=== PATIENT | female | born 1960 | race African-American/Black ===

== ENCOUNTER 2021-01-04 13:18 | Observation (INO) | payer OTHER, SELFPAY ==
[2021-01-04] VITALS (13 sets, daily range): BP systolic 138–160; BP diastolic 81–96; PULSE 21–62; RESP 12–57; TEMP 36.3–36.7; O2SAT 98–100; BMI 32.2
--- NOTE | ~2021-01-04 | XR_ITS ---
EXAMINATION: XR chest 2V DATE: 01/04/2021 15:50 INDICATION: Dizziness. TECHNIQUE: Frontal and lateral views of the chest were obtained. COMPARISON: None. FINDINGS: There is mild atelectasis in the lower lung zones. No pleural effusion or pneumothorax. Car diomegaly is noted. IMPRESSION: 1. Mild atelectasis in the lower lung zones. 2. Cardiomegaly. Reviewed, dictated and finalized at location A.
--- NOTE | ~2021-01-04 | US_ITS ---
EXAMINATION: US carotid duplex BI DATE: 01/05/2021 10:03 INDICATION: Dizziness TECHNIQUE: Grayscale, color Doppler, and pulsed Doppler images of the cervical carotid arteries were obtained. The degree of vessel stenosis is placed in one of the following categories: normal, <50%, 5 0-69%, >=70% but less than near-occlusion, near-occlusion, or total occlusion. Note that percent sten osis relative to normal distal artery lumen diameter is indirectly measured from velocity measurement s as described by Catalino, et al. Radiology 2003; 229:340-346. COMPARISON: None. FINDINGS: RIGHT: The right common carotid artery (CCA) peak systolic velocity (PSV) is 89 cm/s. The right internal car otid artery (ICA) PSV is 69 cm/s. The right ICA end-diastolic velocity (EDV) is 21 cm/s. The right IC A/CCA PSV ratio is 0.8. Grayscale and color Doppler images yield an estimate of <50% diameter reducti on from plaque in the ICA. The external carotid artery (ECA) PSV is 61 cm/s. There is antegrade flow in the right vertebral artery. LEFT: The left CCA PSV is 101 cm/s. The left ICA PSV is 82 cm/s. The left ICA EDV is 27 cm/s. The left ICA/ CCA PSV ratio is 0.8. Grayscale and color Doppler images yield an estimate of <50% diameter reduction from plaque in the ICA. The ECA PSV is 63 cm/s. There is antegrade flow in the left vertebral artery . IMPRESSION: 1. <50% stenosis in the right internal carotid artery. 2. <50% stenosis in the left internal carotid artery. Reviewed, dictated and finalized at location A.
--- NOTE | ~2021-01-04 | CT_ITS ---
EXAMINATION: CT brain wo con DATE: 01/04/2021 15:44 INDICATION: Dizziness. TECHNIQUE: Computed tomography (CT) of the head was performed without intravenous contrast. The mA wa s adjusted according to patient size. Iterative reconstruction technique was employed. The dose-lengt h product was 605.33 mGy-cm. COMPARISON: None FINDINGS: There are scattered areas of low attenuation in the cerebral white matter. There are old la cunar infarcts in the bilateral basal ganglia and right thalamus. There is an old infarct in left par ietal occipital region. There is no intracranial hemorrhage, acute infarction, or abnormal intracrani al mass lesion. There is ex vacuo dilatation of occipital horn of left lateral ventricle. The orbits are normal. There is mild mucosal thickening in the ethmoid sinuses. The mastoid air cells are normal . IMPRESSION: 1. Old infarcts in the left parietal-occipital region and bilateral basal ganglia. 2. Extensive nonspecific cerebral white matter disease, which likely represents chronic small vessel ischemic disease. Reviewed, dictated and finalized at location A. IMPRESSION: 1. Old infarcts in the left parietal-occipital region and bilateral basal gangl ia. 2. Extensive nonspecific cerebral white matter disease, which likely represents chronic small vessel ischemic disease.
--- NOTE | 2021-01-04 13:29 | ECG_ITS ---
Measurements Intervals Basom Rate: 47 P: 28 DE: 205 QRS: -15 QRSD: 105 T: 44 QT: 452 QTc: 403 Interpretive Statements SINUS BRADYCARDIA WITH SINUS ARRHYTHMIA BORDERLINE AV CONDUCTION DELAY VOLTAGE CRITERIA FOR LVH MINIMAL Q WAVES- HIGH LATERAL LEADS ABNORMAL ECG Electronically Signed On 01-04-2021 14:34:50 CDT by Александр Luz D.O.
[2021-01-04 13:45] LABS: Basophils Percent Auto 0.4 % (0.2-1.2); Eosinophils Absolute Auto 0.2 K/mm3 (0-0.3); Eosinophils Percent Auto 3.5 % (0-4.4); Hematocrit 41.1 % (37.0-47.0); Hemoglobin 13.4 g/dL (12.0-15.0); Immature Granulocyte Absolute 0.01 K/mm3 (0.00-0.031); Immature Granulocyte Percent A 0.2 % (0-0.5); Lymphocytes Absolute Auto 1.99 K/mm3 (0.9-3.2); Lymphocytes Percent Auto 44.1 % (18.3-44.2); Mean Corpuscular HGB Conc 32.6 g/dl (32-36); Mean Corpuscular Hemoglobin 27.5 pg (26-34); Mean Corpuscular Volume 84.4 fl (80-100); Mean Platelet Volume 9.2 fl (7.4-10.4); Monocytes Absolute Auto 0.3 K/mm3 (0.1-0.6); Monocytes Percent Auto 5.8 % (2.6-8.5); Neutrophils Absolute Auto 2.1 K/mm3 (1.3-6.7); Platelet Count Result 237 k/mm3 (150-375); Red Blood Count 4.87 M/mm3 (4.2-5.4); Red Cell Distribution Width 13.8 % (11.5-14.5); White Blood Count 4.5 K/mm3 (4.5-10.0)
[2021-01-04 14:09] LABS: Anion Gap 8 mmol/L (8-16); Blood Urea Nitrogen 16 mg/dL (7-17); Calcium 9.6 mg/dL (8.4-10.2); Carbon Dioxide 28 mmol/L (22-30); Chloride 106 mmol/L (98-107); Estimated CRCL calculation 58 ml/min; Estimated Glomerular Filt Rate > 60; Glucose 88 mg/dL (65-110); Potassium 3.7 mmol/L (3.4-5.0); Sodium 142 mmol/L (137-145)
--- NOTE | 2021-01-04 15:03 | ED.DIZZY ---
HPI - Dizziness General Chief Complaint: Dizziness Stated Complaint: DIZZINESS X3D Time Seen by Provider: 01/04/21 14:49 Source: patient Mode of arrival: ambulatory Limitations: no limitations History of Present Illness HPI Narrative: This is a 60 year old female that presents to the ER for dizziness present over the last couple of days. Reports room spinning dizziness that started on Saturday. Reports she had stood up and felt dizzy and nauseous. She had to lay down for a while until she was finally feeling better. Reports since she has been mildly dizzy. She has not taken anything for her symptoms. Denies fever, chest pain, shortness of breath, vision changes, vomiting, numbness or weakness. Related Data Allergies Allergy/AdvReac Type Severity Reaction Status Date / Time Penicillins Allergy Anaphylaxis Verified 01/04/21 15:31 Review of Systems Review of Systems: CONSTITUTIONAL: Denies fever EYES: Denies visual changes CARDIOVASCULAR: Denies chest pain RESPIRATORY: Denies dyspnea. NEUROLOGIC: Denies numbness, or weakness. All systems reviewed & are unremarkable except as noted in HPI and below PMFSH Past Medical History Medical History (Updated 01/04/21 @ 19:36 by Genevieve Gordon PA-C) History of hyperlipidemia History of hypertension Social History Social History (Updated 01/04/21 @ 15:07 by Genevieve Gordon PA-C) Smoking status: Never smoker Exam Narrative: GENERAL: Well-appearing, well-nourished, and in no acute distress. HEAD: Normocephalic, atraumatic. EYES: EOMI. ENT: Nares clear, no rhinorrhea or epistaxis. Mucous membranes moist. Oropharynx without tonsillar hypertrophy exudate or other lesions. Bilateral TMs pearly gambino non-bulging NECK: Supple. No adenopathy or masses. No carotid bruits or JVD CHEST: Clear to auscultation. No respiratory distress. No wheezes rales or rhonchi HEART: Regular rate and rhythm. No murmur heard. Normal peripheral pulses. EXTREMITIES: Normal range of motion. No edema. SKIN: Warm, dry, no rash. NEURO: No focal deficits. Alert and oriented x3. Cranial nerves II through XII grossly intact. Normal [id number] PSYCH: Normal mood and affect Course Consultations Consultation #1: Spoke with patient's last greaser, Dr. Vivar. Recommends admission for observation overnight. Reports patient has had a stress test this year without evidence of ischemia. Also reports a recent echocardiogram with normal EF. Date: 01/04/21 Time: 18:00 Consultation #2: Spoke with Dr Chung about patient and workup who will consult Date: 01/04/21 Time: 18:38 Consultation #3: Spoke with hospitalist about patient and workup who accepts admission Date: 01/04/21 Time: 19:00 Vital Signs Vital signs: Vital Signs Temperature 98.0 F 01/04/21 13:25 Pulse Rate 61 01/04/21 13:25 Respiratory Rate 14 01/04/21 13:25 Blood Pressure 148/85 H 01/04/21 13:25 Pulse Oximetry 98 01/04/21 13:25 Temperature 98.0 F 01/04/21 13:25 Pulse Rate 43 L 01/04/21 17:06 Respiratory Rate 14 01/04/21 16:22 Blood Pressure 160/93 H 01/04/21 16:21 Pulse Oximetry 100 01/04/21 16:22 MDM - Dizziness MDM Narrative Medical decision making narrative: Patient presents to the emergency department for dizziness ongoing over the last couple of days. Reports room spinning dizziness associated with nausea. Blood pressure stable. Oxygen saturation has remained normal on room air. Patient does become intermittently bradycardic with heart rate frequently in the 40s. Appears to be sinus bradycardia. CBC and metabolic panel without concerning findings. CT scan of the brain shows old infarcts and chronic small vessel ischemic disease. No acute findings. Chest x-ray shows mild atelectasis and cardiomegaly. Patient was updated on case findings. She does report improvement with IV fluids, meclizine and Zofran. Spoke with patient's last greaser, Dr. Vivar. Recommends admission for observation overnight. Reports
[2021-01-04] MEDS: ONDANSETRON INJ 4 MG/2 ML VIAL IV PUSH (15:28)
[2021-01-04] MEDS: MECLIZINE HCL 25 MG TABLET PO (15:28)
[2021-01-04] MEDS: SODIUM CHLORIDE 0.9% IV 500 ML 999 ML IV CONT (15:29)
[2021-01-04] MEDS: Please add drug allergy info to patient profile. 1 EACH XX (15:41)
--- NOTE | 2021-01-04 21:15 | ADMGEN ---
This patient, Cathy Charles, was admitted to Medical Room 342-01. Patient/family oriented to hospital policies and general routines including ID bracelet, bed and alarms, visiting hours, pain management, procedures, bathroom and other care routines, personal items, smoking policy, room service/diet, and visiting hours. Information on how to activate the Rapid Response Team has been discussed. Patient/Family are encouraged to report perceived risks to care and to ask questions if they do not understand what they are told or what they should do.
--- NOTE | 2021-01-04 21:48 | PM.IMHP ---
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 She stated that her metallurgical tester is at [employer]. She stated that she came to the emergency room today due to dizziness over the last couple days. The patient stated that this probably started around Saturday with some nausea as well. The patient stated that she laid down which did not seem to help at all. The patient stated that she had something similar to this 1 year ago. She stated that she was hospitalized for weak at that time and was told that if this continues she would need to be hospitalized and get a pacemaker. The patient has been fine for whole year and now the symptoms started again. She stated that the room felt like it was spinning around but when she laid down she felt much better. She did take anything for the symptoms except resting. No focal weakness or shortness of breath no fever no chills only nausea without vomiting. No numbness or tingling. Patient's EKG was read as sinus bradycardia with sinus arrhythmia. Heart rate was in the 40s. Head CT was read as old infarcts of the left parietal occipital region and bilateral basal ganglia. Chest x-ray was read as mild atelectasis in the lower lung zones. Cardiomegaly. Labs were unremarkable. Cardiology has been consulted. The patient was given IV fluids, Antivert and Zofran. The patient is being admitted to observation status on the date of service of 01/04/2021. Chief Complaint: Dizziness with bradycardia Review of Systems Review of Systems: All systems reviewed & are unremarkable except as noted in HPI and below Constitutional: Constitutional: Reports as per HPI and Reports no additional constitutional complaints Eyes: Eyes: Reports as per HPI and Reports no additional eye complaints ENT: Reports system reviewed and no additional complaints, except as documented and Reports Normal hearing present Cardiovascular: Cardiovascular: Reports no additional cardiovascular complaints Respiratory: Respiratory: Reports no additional respiratory complaints and Reports no additional respiratory complaints Gastrointestinal: Gastrointestinal: Reports as per HPI and Reports no additional gastrointestinal complaints Musculoskeletal: Musculoskeletal: Reports no additional musculoskeletal complaints Integumentary/Breasts: Skin/Breast: Reports system reviewed and no additional complaints, except as docu and Reports as per HPI Neurologic: Reports system reviewed and no additional complaints, except as documented, Reports as per HPI and Reports Normal hearing present Psychiatric: Psychiatric: Reports no additional psychiatric complaints and Reports as per HPI Endocrine: Endocrine: Reports no additional endocrine complaints Hematologic/Lymphatic: Hematologic/Lymphatic: Reports no additional hematologic/lymphatic complaints Allergic/Immunologic: Allergic/Immunologic: Reports no additional allergic/immunologic complaints [facility] Past Medical History Medical History (Updated 01/04/21 @ 22:04 by Janny Marcus NP) History of CVA (cerebrovascular accident) History of hyperlipidemia History of hypertension Hypertension Surgical History Surgical History (Updated 01/04/21 @ 21:58 by Janny Marcus NP) H/O thyroidectomy Partial left H/O tubal ligation Family History Family History Mother Cerebrovascular accident Sibling Cerebrovascular accident Sibling Heart attack Father Alzheimer's dementia Social History Social History (Updated 01/04/21 @ 21:57 by Janny Marcus NP) Social History: The patient has 3 children and stop smoking approximately 3-4 months ago. The patient is and her is the durable power tax associate attorney for healthcare. The patient is unemployed. Code status full code Smoking packs per day: 0.5 Smoking cigarettes per day: 10.0 Years s
[2021-01-04] MEDS: SODIUM CHLORIDE 0.9% IV 1,000 ML 100 ML IV CONT (23:08)
[2021-01-05] VITALS (15 sets, daily range): BP systolic 115–151; BP diastolic 71–91; PULSE 58–84; RESP 16–20; TEMP 36.1–36.8; O2SAT 98–100
--- NOTE | 2021-01-05 | ECHO_ITS ---
Patient Info Name: Cathy Charles Age: 60 years : 1960 Gender: Female Ht: 65 in Wt: 160 lbs BSA: 1.84 m2 HR: 80 bpm BP: 115 / 71 mmHg Heart Rhythm: Sinus Rhythm Technical Quality: Good Exam Date: 01/05/2021 9:04 AM Exam Location: [facility] Exam Room: 342 Patient Status: Inpatient Admit Date: 01/04/2021 Staff Ordering Physician: Janny Marcus NP Computer Repair Engineer: Ines Comer RDCS Attending Provider: Thomas Catalan MD Referring Physician: Amrit ALLRED; Exam Type: CA echo doppler color flow Study Info Indications - DIZZINESS Complete two-dimensional, color flow and Doppler transthoracic echocardiogram is performed. Summary 1. Complete two-dimensional, color flow and Doppler transthoracic echocardiogram is performed. 2. Left ventricular systolic function is normal, estimated at 60-65%. 3. There is mildly increased left ventricular wall thickness. 4. The left ventricular diastolic function is grade I diastolic dysfunction. 5. Left atrial chamber dimension is mildly enlarged. 6. There is mild aortic valve sclerosis. 7. There is mild mitral valve regurgitation. 8. There is mild tricuspid valve regurgitation. 9. No pulmonary hypertension, estimated pulmonary arterial systolic pressure is 36 mmHg. Left Ventricle Left ventricular chamber dimension is normal. Left ventricular systolic function is normal, estimated at 60-65%. There is mildly increased left ventricular wall thickness. Left ventricular septal wall motion is normal. The left ventricular diastolic function is grade I diastolic dysfunction. Right Ventricle Right ventricular chamber dimension is normal. Right ventricular systolic function is normal. Left Atria Left atrial chamber dimension is mildly enlarged. Right Atria Right atrial chamber dimension is normal. Atrial Septum Intact interatrial septum visualized by color flow imaging. Aortic Valve The aortic valve is trileaflet. There is mild aortic valve sclerosis. There is no aortic valve stenosis. There is no aortic valve regurgitation. Pulmonic Valve The pulmonic valve is normal. There is no pulmonic valve stenosis. There is mild pulmonic regurgitation. Mitral Valve The mitral valve has normal leaflets. There is no mitral valve stenosis. There is mild mitral valve regurgitation. Tricuspid Valve The tricuspid valve leaflets are normal. There is no significant tricuspid valve stenosis. There is mild tricuspid valve regurgitation. No pulmonary hypertension, estimated pulmonary arterial systolic pressure is 36 mmHg. Pericardium/Pleural The pericardium appears normal. There is no pericardial effusion. Inferior Vena Cava Normal inferior vena cava with <50% collapse upon inspiration consistent with elevated right atrial pressure, 10 mmHg. Aorta The aortic root size at the sinus of Valsalva is normal. The prox ascending aorta size is normal. Left Ventricular Outflow Tract Name Value Normal LVOT 2D LVOT Diameter 2.0 cm LVOT Doppler LVOT Peak Gradient 6 mmHg LVOT Mean Gradient
[2021-01-05 06:27] LABS: Basophils Percent Auto 0.4 % (0.2-1.2); Eosinophils Absolute Auto 0.2 K/mm3 (0-0.3); Eosinophils Percent Auto 3.1 % (0-4.4); Hematocrit 35.5 % (37.0-47.0); Hemoglobin 11.3 g/dL (12.0-15.0); Immature Granulocyte Absolute 0.01 K/mm3 (0.00-0.031); Immature Granulocyte Percent A 0.2 % (0-0.5); Lymphocytes Absolute Auto 2.22 K/mm3 (0.9-3.2); Lymphocytes Percent Auto 45.5 % (18.3-44.2); Mean Corpuscular HGB Conc 31.8 g/dl (32-36); Mean Corpuscular Hemoglobin 27.2 pg (26-34); Mean Corpuscular Volume 85.5 fl (80-100); Mean Platelet Volume 9.7 fl (7.4-10.4); Monocytes Absolute Auto 0.2 K/mm3 (0.1-0.6); Monocytes Percent Auto 4.5 % (2.6-8.5); Neutrophils Absolute Auto 2.3 K/mm3 (1.3-6.7); Neutrophils Percent Auto 46.3 % (45.5-73.1); Platelet Count Result 240 k/mm3 (150-375); Red Blood Count 4.15 M/mm3 (4.2-5.4); Red Cell Distribution Width 13.7 % (11.5-14.5); White Blood Count 4.9 K/mm3 (4.5-10.0)
[2021-01-05 06:39] LABS: Magnesium 2.1 mg/dL (1.6-2.3)
[2021-01-05 06:42] LABS: Lactic Acid Reflex 0.9 mmol/L (0.7-2.1)
[2021-01-05] MEDS: MECLIZINE HCL 6.25 MG TABLET PO ×3 (08:32→16:51)
[2021-01-05] MEDS: SODIUM CHLORIDE 0.9% IV 1,000 ML 100 ML IV CONT ×2 (08:33→22:37)
--- NOTE | 2021-01-05 09:47 | PM.CNCAR ---
Assessment and Plan Assessment and plan (1) Bradycardia: Code(s): R00.1 - Bradycardia, unspecified Status: Acute Assessment and Plan: Mild, intermittent sinus bradycardia without prolonged pauses or high-grade AV blocks. This is not the cause of her vertigo which was her primary presenting complaint. Intermittent lightheadedness and dizziness with position change most likely medication related and or history of prior stroke on CT, however, cannot entirely exclude association if patient has more persistent bradycardia with activity. Thus far she has no indication for permanent pacemaker implantation. Additional workup will be required for further confirmation such as monitoring specialist and/or loop recorder implantation. She will follow up as an outpatient with her primary identification officer Dr. Vivar as scheduled in the next 2-4 weeks. -Avoid all AV oli blocking agents. It is certainly plausible patient has a degree of mild sick sinus syndrome, but I do not feel it is clinically relevant to her presenting complaints. I would like patient to ambulate in the hallway to monitor heart rate response and assess for chronotropic incompetence prior to discharge. TSH, renal function, electrolytes unremarkable. 2D echocardiogram personally reviewed with preserved LV function, no significant valve pathology. (2) Dizziness: Code(s): R42 - Dizziness and giddiness Status: Acute Assessment and Plan: Presenting symptoms are consistent with vertigo although she does report positional lightheadedness/dizziness which resolves fairly quickly without associated near-syncope or syncope. Symptomatic management for vertigo per primary service. I discussed the pathophysiology associated with vertigo and the differences between dizziness and vertiginous symptoms. DC IV fluids if orthostasis is not appreciated. Carotid Dopplers less than 50% stenosis bilaterally not contributing to present symptoms. mild anemia not expected to contribute to patient's symptom complex. Check UA if warranted, although pt denies sxs. Defer to primary service in this regard. (3) Hypertension: Code(s): I10 - Essential (primary) hypertension Status: Chronic Assessment and Plan: BP reasonably controlled on Losartan 50 mg daily. Check orthostatic vital signs. Continue current medical therapy as appropriate. (4) History of CVA (cerebrovascular accident): Code(s): Z86.73 - Personal history of transient ischemic attack (TIA), and cerebral infarction without residual deficits Status: Inactive Assessment and Plan: CT head with old strokes may be contributing to dizziness in general, however, patient was previously unaware of having had a stroke. continue statin therapy goal LDL less than 70. Advised initiation of aspirin 81 mg daily given documented history of stroke. Further workup as an outpatient per her PCP and identification officer. History of Present Illness History of Present Illness Consult date/time: Date of service:01/05/21 09:47 Cardiology consultation at the request of Janny Marcus APN for our opinion regarding bradycardia and dizziness. Requesting physician: Janny Marcus NP Consult reason: Other (bradycardia, dizziness) Reason For Visit: DIZZINESS, Bradycardia Narrative: patient is a very pleasant 60-year-old female with a past medical history significant for hypertension, dyslipidemia and reported vertigo who presents to the emergency department with complaints of dizziness which began on Saturday. Patient describes the symptoms as spinning sensation with the room rotating around her. She also notes occasional lightheadedness or dizziness upon standing which resolves in short order. She denies near-syncope or syncope at any time. She states she had a similar episode 1 year ago which resolved similar to but not as severe as this episode. She is feeling much better in this regard currently but
--- NOTE | 2021-01-05 13:12 | PM.IMPN ---
Progress Note: A&P Assessment and Plan (1) Bradycardia: Code(s): R00.1 - Bradycardia, unspecified Status: Acute Assessment and Plan: Her heart rate on admission was 40. Cardiology has been consulted. asymptomatic as long she is in bed. IV fluids and Antivert in the emergency room. continue with Antivert. Echo: normal systolic function 60-65%, increase left wall thickness, grade on diastolic dysfunction no noted beta-blockers. 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 hydralazine with parameters Trend Subjective Date/time seen: 01/05/21 13:12 Interval history: Patient is a 60 year old female that is here for dizziness and bradycardia. Today she is feeling better. She is not having any dizziness, nausea, or chest pain since admission. She does have a slight headache, and wanted some tylenol for it. She did deny fever, sweats, chills, abdominal pain, weakness, or fatigue. She did mention having another episode similar to this one last year. She does see cards at [facility], Dr. Dunn. She did say that this always starts with the room spinning and it spins very fast. She had this experience that started on sun. She did say that she has not had this since Saturday. She said that when she went to be evaluated at [place] they sent her home. She said that she did not believe them because she said that she knows when there is something wrong with her body. Review of Systems Review of Systems: All systems reviewed & are unremarkable except as noted in HPI and below Exam Const: General: cooperative, healthy appearing, comfortable, no acute distress, well developed, alert, awake and Physically active Nutritional Appearance: average body habitus and well nourished Orientation/consciousness: oriented to person, oriented to place, oriented to time and patient oriented x3 Limitations: no limitations HENMT: Head: normal to inspection, No palpable skull fracture present, normocephalic and atraumatic Ears: hearing grossly normal bilaterally and external ears normal General nose exam: Normal external nose present Eyes: General: appearance normal, both eyes and all related structures Alignment and Position: alignment normal Periorbital: periorbital findings normal Eyelids: eyelids normal Pupils: Equal, round and reactive pupils present EOM: EOMs intact bilaterally Neck: Neck: normal visual inspection and full ROM Chest: Chest palpation & inspection: normal inspection of the chest Resp: Effort & Inspection: normal respiratory effort Auscultation: clear to auscultation bilaterally Percussion: percussion normal Cardio: Palpation: normal PMI Rate: bradycardic Rhythm: regular rhythm Heart sounds: S1 normal heart sound present and S2 normal heart sound present Peripheral pulses: Peripheral pulses 2+ throughout GI: Inspection: normal to inspection Auscultation: normal bowel soun
[2021-01-05 17:30] LABS: Add Urine Microscopic? YES; Appearance Urine Clear (Clear); Bacteria Urine Trace /hpf; Bilirubin Urine Negative (Negative); Blood Urine Negative (Negative); Color Urine Yellow (Yellow); Glucose Urine UA Negative (Negative); Ketones Urine Negative (Negative); Leukocyte Esterase Ur 2+ LEU/UL (Negative); Mucus Urine Rare /lpf; Nitrate Urine Negative (Negative); Protein Urine Negative (Negative); Specific Grav Ur 1.019 (1.001-1.035); Squamous Epithelial Cell Urine Many /hpf (Few)
[2021-01-06] VITALS (8 sets, daily range): BP systolic 126–172; BP diastolic 77–95; PULSE 51–78; RESP 16–18; TEMP 36.6–36.8; O2SAT 96–97
[2021-01-06 06:59] LABS: Basophils Percent Auto 0.6 % (0.2-1.2); Eosinophils Absolute Auto 0.2 K/mm3 (0-0.3); Eosinophils Percent Auto 4.4 % (0-4.4); Hematocrit 35.4 % (37.0-47.0); Hemoglobin 11.2 g/dL (12.0-15.0); Immature Granulocyte Absolute 0.01 K/mm3 (0.00-0.031); Immature Granulocyte Percent A 0.2 % (0-0.5); Lymphocytes Percent Auto 54.1 % (18.3-44.2); Mean Corpuscular HGB Conc 31.6 g/dl (32-36); Mean Corpuscular Hemoglobin 27.5 pg (26-34); Mean Platelet Volume 9.8 fl (7.4-10.4); Monocytes Absolute Auto 0.3 K/mm3 (0.1-0.6); Monocytes Percent Auto 5.2 % (2.6-8.5); Neutrophils Absolute Auto 1.8 K/mm3 (1.3-6.7); Neutrophils Percent Auto 35.5 % (45.5-73.1); Platelet Count Result 230 k/mm3 (150-375); Red Blood Count 4.07 M/mm3 (4.2-5.4); Red Cell Distribution Width 13.7 % (11.5-14.5)
[2021-01-06 07:20] LABS: Alanine Aminotransferase 15 U/L (4-35); Albumin Level 3.9 g/dL (3.5-5.1); Alkaline Phosphatase 66 U/L (38-126); Anion Gap 6 mmol/L (8-16); Aspartate Amino Transferase 23 U/L (14-36); Bilirubin,Total 0.7 mg/dL (0.2-1.3); Blood Urea Nitrogen 14 mg/dL (7-17); Carbon Dioxide 26 mmol/L (22-30); Chloride 109 mmol/L (98-107); Estimated CRCL calculation 51 ml/min; Estimated Glomerular Filt Rate > 60; Glucose 86 mg/dL (65-110); Magnesium 1.8 mg/dL (1.6-2.3); Potassium 3.7 mmol/L (3.4-5.0); Sodium 141 mmol/L (137-145)
[2021-01-06] MEDS: SODIUM CHLORIDE 0.9% IV 1,000 ML 100 ML IV CONT (08:39)
[2021-01-06] MEDS: MECLIZINE HCL 6.25 MG TABLET PO ×2 (08:40→12:22)
--- NOTE | 2021-01-06 13:40 | PM.DS ---
DS: Admitting Diagnosis Discharge Date Date of Service 01/06/21 13:40 Admitting Diagnosis Bradycardia and dizziness DS: Discharge Diagnosis Discharge Diagnosis (1) Bradycardia: Code(s): R00.1 - Bradycardia, unspecified Status: Acute Assessment and Plan: Her heart rate on admission was 40. Cardiology has been consulted. asymptomatic as long she is in bed. IV fluids and Antivert in the emergency room. continue with Antivert. Echo: normal systolic function 60-65%, increase left wall thickness, grade on diastolic dysfunction no noted beta-blockers. 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 hydralazine with parameters Trend DS: Summary Hospital Course Hospital Course: Patient is a 60-year-old female with a past medical history of CVA and hypertension who presented to the ED with complaints of dizziness over the last couple days. Patient stated that it really all started Saturday with some nausea and the room spinning around her really fast. She was also noted to be bradycardic in the 40s and 50s. Cardiology had seen the patient and thought that her bradycardia could be from medications or her previous stroke. However patient sees Dr. Peralta at [facility] and has a follow-up appointment with him in 2 weeks. Patient stated that most for dizziness comes with position changes. Patient will probably need a loop recorder or event monitor which she can get from her coagulator. Echocardiogram was done and showed a preserved LV function with no pathology at this time. Labs have remained stable and UA looks negative for a UTI. Patient did have an episode of dizziness today. She was given a dose of meclizine which she stated made her feel better. she denies chest pain, shortness of breath, weakness, fatigue, nausea, vomiting, abdominal pain, sweats, fever, chills. She stated that she is ready to go and will follow up as instructed. Status at Discharge Functional status at discharge: independent ambulation Overall status at discharge: patient is progressing back to baseline Time Spent with Patient Time attestation: Total time spent providing and/or coordinating discharge services: 47 minutes Time spent: Greater than 30 minutes Exam Const: General: cooperative, healthy appearing, comfortable, no acute distress, well developed, alert, awake and Physically active Nutritional Appearance: average body habitus and well nourished Orientation/consciousness: oriented to person, oriented to place, oriented to time and patient oriented x3 Limitations: no limitations HENMT: Head: normal to inspection, No palpable skull fracture present, normocephalic and atraumatic Ears: hearing grossly normal bilaterally and external ears normal General nose exam: Normal external nose present Eyes: General: appearance normal, both eyes and all related structures Alignment and Position: alignment normal Perior
--- NOTE | 2021-01-06 14:16 | PM.PNCARD ---
Progress Note: A&P Assessment and Plan (1) Bradycardia: Code(s): R00.1 - Bradycardia, unspecified Status: Acute Assessment and Plan: Mild, intermittent sinus bradycardia without prolonged pauses or high-grade AV blocks. This is not the cause of her vertigo which was her primary presenting complaint. Intermittent lightheadedness and dizziness with position change most likely medication related and or history of prior stroke on CT, however, cannot entirely exclude association if patient has more persistent bradycardia with activity. Thus far she has no indication for permanent pacemaker implantation. Additional workup will be required for further confirmation such as board mixer tender and/or loop recorder implantation. She will follow up as an outpatient with her primary worsted winder Dr. Vivar as scheduled in the next 2-4 weeks. -Avoid all AV oli blocking agents. (2) Dizziness: Code(s): R42 - Dizziness and giddiness Status: Acute Assessment and Plan: Presenting symptoms are consistent with vertigo although she does report positional lightheadedness/dizziness which resolves fairly quickly without associated near-syncope or syncope. Symptomatic management for vertigo per primary service. I discussed the pathophysiology associated with vertigo and the differences between dizziness and vertiginous symptoms. DC IV fluids if orthostasis is not appreciated. Carotid Dopplers less than 50% stenosis bilaterally not contributing to present symptoms. mild anemia not expected to contribute to patient's symptom complex. Check UA if warranted, although pt denies sxs. Defer to primary service in this regard. (3) Hypertension: Code(s): I10 - Essential (primary) hypertension Status: Chronic Assessment and Plan: BP reasonably controlled on Losartan 50 mg daily. Check orthostatic vital signs. Continue current medical therapy as appropriate. (4) History of CVA (cerebrovascular accident): Code(s): Z86.73 - Personal history of transient ischemic attack (TIA), and cerebral infarction without residual deficits Status: Inactive Assessment and Plan: CT head with old strokes may be contributing to dizziness in general, however, patient was previously unaware of having had a stroke. continue statin therapy goal LDL less than 70. Advised initiation of aspirin 81 mg daily given documented history of stroke. Further workup as an outpatient per her PCP and worsted winder. Subjective Date/time seen: 01/06/21 14:16 Date of service 01/06/2021: She just had an episode of blurry vision/dizziness. She was given meclizine and symptoms resolved. She's feeling fine otherwise. Plan for discharge home today with follow up with her usual worsted winder. Review of Systems Review of Systems: All systems reviewed & are unremarkable except as noted in HPI and below Constitutional: Constitutional: Reports as per HPI, Reports no additional constitutional complaints, Reports fatigue and Reports headache(s) Eyes: Eyes: Reports as per HPI and Reports no additional eye complaints ENT: Reports system reviewed and no additional complaints, except as documented, Reports as per HPI and Reports headache(s) Cardiovascular: Cardiovascular: Reports as per HPI, Reports no additional cardiovascular complaints, Denies chest pain, Denies diaphoresis, Reports lightheadedness, Denies palpitations, Denies dyspnea and Denies dyspnea on exertion Respiratory: Respiratory: Reports as per HPI, Reports no additional respiratory complaints, Denies chest congestion, Denies cough, Denies hemoptysis, Denies dyspnea, Denies dyspnea on exertion and Denies wheezing Gastrointestinal: Gastrointestinal: Reports as per HPI, Reports no additional gastrointestinal complaints, Denies abdominal pain, Denies melena, Denies hematochezia, Reports constipation, Denies nausea, Denies vomiting and Denies hematemesis Genitourinary: Genitourinary:
[2021-01-06] MEDS: LOSARTAN POTASSIUM 50 MG TABLET PO (14:26)
== END 2021-01-06 15:45 | disposition home or self-care (01) ==
LOC: ANHED 19:36 → ANH3MED 19:56
PROVIDERS: Emergency Medicine; Nurse Practitioner; Admitting Provider Internal Medicine; Emergency Provider Emergency Medicine; PCP Internal Medicine Infectious Disease; Visit Provider Internal Medicine
DX: R00.1 Bradycardia, unspecified (principal); R42 Dizziness and giddiness; I10 Essential (primary) hypertension; E78.5 Hyperlipidemia, unspecified; Z86.73 Personal history of transient ischemic attack (TIA), and cerebral infarction without residual deficits; Z87.891 Personal history of nicotine dependence
CPT/HCPCS: 36415; 70450; 71046; 80048; 80053; 81001; 82728; 83605; 83735; 84443; 85025; 93005; 93306; 93880; 96360; 96361; 96374; 99285; A9270; G0378; G0379; J2405; J7030; J7040

== ENCOUNTER 2021-07-02 16:05 | Emergency (ER) | payer OTHER, SELFPAY ==
--- NOTE | ~2021-07-02 | XR_ITS ---
EXAMINATION: XR chest 1V portable Exam Date/Time: 07/02/2021 16:45 CDT CLINICAL HISTORY: dizziness, HTN, HX CVA Comparison: 01/04/2021. RESULT: Lines, tubes, and devices: None. Lungs and pleura: Bibasilar scar. Otherwise clear. Cardiomediastinal silhouette: Stable cardiomediastinal silhouette. Other: No acute osseous or upper abdominal finding. IMPRESSION: No acute cardiopulmonary process. Reviewed, dictated and finalized at location K.
[2021-07-02 16:06] VITALS: BP 157/93; PULSE 69; RESP 18; TEMP 36.4; O2SAT 99
--- NOTE | 2021-07-02 16:19 | ECG_ITS ---
Measurements Intervals [place] Rate: 61 P: 20 IN: 215 QRS: -18 QRSD: 83 T: 65 QT: 446 QTc: 451 Interpretive Statements SINUS RHYTHM WITH FIRST DEGREE AV BLOCK VOLTAGE CRITERIA FOR LVH [MEETS CRITERIA IN ONE OF: R(aVL), S(V1), R(V5), R(V5/V6)+S(V1)] POSSIBLE ANTERIOR MYOCARDIAL INFARCTION , PROBABLY OLD [30 ms Q WAVE IN V3/V4, OR R < 0.2 mV IN V4] NONSPECIFIC T-WAVE ABNORMALITY ABNORMAL ECG NO PREVIOUS ECG AVAILABLE FOR COMPARISON Electronically Signed On 07-03-2021 13:56:49 CDT by Frank Reina M.D.
[2021-07-02 16:30] LABS: Basophils Percent Auto 0.4 % (0.2-1.2); Eosinophils Absolute Auto 0.2 K/mm3 (0-0.3); Hematocrit 37.1 % (37.0-47.0); Hemoglobin 11.9 g/dL (12.0-15.0); Immature Granulocyte Absolute 0.01 K/mm3 (0.00-0.031); Immature Granulocyte Percent A 0.2 % (0-0.5); Lymphocytes Absolute Auto 2.38 K/mm3 (0.9-3.2); Lymphocytes Percent Auto 49.2 % (18.3-44.2); Mean Corpuscular HGB Conc 32.1 g/dl (32-36); Mean Corpuscular Hemoglobin 26.9 pg (26-34); Mean Corpuscular Volume 83.7 fl (80-100); Mean Platelet Volume 9.3 fl (7.4-10.4); Monocytes Absolute Auto 0.3 K/mm3 (0.1-0.6); Monocytes Percent Auto 6.2 % (2.6-8.5); Neutrophils Absolute Auto 1.9 K/mm3 (1.3-6.7); Platelet Count Result 241 k/mm3 (150-375); Red Blood Count 4.43 M/mm3 (4.2-5.4); Red Cell Distribution Width 13.4 % (11.5-14.5); White Blood Count 4.8 K/mm3 (4.5-10.0)
[2021-07-02] MEDS: SODIUM CHLORIDE 0.9% IV 500 ML 999 ML IV CONT (16:32)
[2021-07-02 16:41] LABS: Alanine Aminotransferase 23 U/L (4-35); Albumin Level 4.3 g/dL (3.5-5.1); Alkaline Phosphatase 94 U/L (38-126); Anion Gap 6 mmol/L (8-16); Aspartate Amino Transferase 38 U/L (14-36); Bilirubin,Total 0.8 mg/dL (0.2-1.3); Blood Urea Nitrogen 16 mg/dL (7-17); Calcium 8.8 mg/dL (8.4-10.2); Carbon Dioxide 25 mmol/L (22-30); Chloride 107 mmol/L (98-107); Estimated CRCL calculation 61 ml/min; Estimated Glomerular Filt Rate > 60; Glucose 85 mg/dL (65-110); Magnesium 1.9 mg/dL (1.6-2.3); Potassium 3.5 mmol/L (3.4-5.0); Sodium 138 mmol/L (137-145)
--- NOTE | 2021-07-02 16:49 | ED.DIZZY ---
HPI - Dizziness General Chief Complaint: Dizziness Stated Complaint: high blood pressure Time Seen by Provider: 07/02/21 16:10 Source: patient History of Present Illness HPI Narrative: Patient presents with dizziness. Reports she saw her primary care doctor on her blood pressure was advised to increase her losartan from 50 mg to 100 mg since initiating that new dose she reports she has been in a fog . She feels off . She denies any chest pain or shortness of breath she denies any sensation like she is going to pass out she denies any vertigo she denies any nausea or vomiting she denies any diarrhea denies any cough urinary symptoms. She returned to her normal dose yesterday but has not noted improvement in her symptoms so she came to the ER for evaluation. Related Data Home Medications Medication Instructions Recorded Confirmed losartan 50 mg PO DAILY 01/04/21 01/04/21 pravastatin 40 mg PO DAILY 01/04/21 01/04/21 Allergies Allergy/AdvReac Type Severity Reaction Status Date / Time Penicillins Allergy Anaphylaxis Verified 01/04/21 21:28 Review of Systems Review of Systems: CONSTITUTIONAL: Denies fever, chills, or sweats. EYES: Denies visual changes, redness, or discharge. ENT: Denies rhinorrhea, congestion, sore throat, or otalgia. CARDIOVASCULAR: Denies chest pain, palpitations, or edema. RESPIRATORY: Denies cough or dyspnea. GASTROINTESTINAL: Denies abdominal pain, nausea, vomiting, or diarrhea. GENITOURINARY: Denies dysuria or hematuria. SKIN: Denies rash or itching. MUSCULOSKELETAL: Denies back pain, joint pain, or myalgia. NEUROLOGIC: Denies headache, numbness, or focal weakness. PSYCHIATRIC: Denies anxiety or depression. All systems reviewed & are unremarkable except as noted in HPI and below PMFSH Past Medical History Medical History History of CVA (cerebrovascular accident) History of hyperlipidemia History of hypertension Hypertension Surgical History Surgical History H/O thyroidectomy Partial left H/O tubal ligation Family History Family History Mother Cerebrovascular accident Sibling Cerebrovascular accident Sibling Heart attack Father Alzheimer's dementia Social History Social History Social History: The patient has 3 children and stop smoking approximately 3-4 months ago. The patient is and her is the durable power workers compensation defense attorney for healthcare. The patient is unemployed. Code status full code Smoking packs per day: 0.5 Smoking cigarettes per day: 10.0 Years smoked: 40 Smoking pack-years: 20.00 Smoking status: Former smoker Tobacco type: cigarettes Alcohol intake: current Drinks per week: 1 Substance use: never Spiritual care concerns: No Exam Narrative: GENERAL: Well-appearing, well-nourished, and in no acute distress. HEAD: Normocephalic, atraumatic. EYES: PERRLA and EOMI. ENT: Nares clear, no rhinorrhea or epistaxis. Mucous membranes moist. NECK: Supple. No masses. No JVD CHEST: Clear to auscultation. No respiratory distress. No wheezes rales or rhonchi HEART: Regular rate and rhythm. No murmur heard. Normal peripheral pulses. ABDOMEN: Soft, nontender, nondistended, normal active bowel sounds. EXTREMITIES: Normal range of motion. No edema. SKIN: Warm, dry, no rash. NEURO: No focal deficits. Alert and oriented x3. PSYCH: Normal mood and affect. Course Reevaluation(s) Reevaluation #1: Patient reports feeling much improved work-up thus far is unremarkable. Patient is appropriate continued outpatient monitoring patient comfortable outpatient plan. Date: 07/02/21 Time: 17:37 Vital Signs Vital signs: Vital Signs Temperature 36.4 C L 07/02/21 16:06 Pulse Rate 69 07/02/21 16:06 Respiratory Rate 18
[2021-07-02 17:02] VITALS: BP 143/84; PULSE 58; PULSE 62; RESP 13; O2SAT 98
[2021-07-02 17:04] VITALS: BP 147/86; PULSE 63
[2021-07-02 17:06] VITALS: BP 139/88; PULSE 95
[2021-07-02 17:21] LABS: Add Urine Microscopic? YES; Appearance Urine Clear (Clear); Bilirubin Urine Negative (Negative); Blood Urine Negative (Negative); Color Urine Yellow (Yellow); Glucose Urine UA Negative (Negative); Ketones Urine Negative (Negative); Leukocyte Esterase Ur Negative LEU/UL (Negative); Mucus Urine Rare /lpf; Nitrate Urine Negative (Negative); Protein Urine Negative (Negative); Specific Grav Ur 1.015 (1.001-1.035); Squamous Epithelial Cell Urine Rare /hpf (Few); WBC Urine 0-3 /hpf
[2021-07-02 17:45] VITALS: BP 167/95; PULSE 57; RESP 15; O2SAT 99
== END 2021-07-02 18:00 | disposition home or self-care (01) ==
PROVIDERS: Emergency Provider Emergency Medicine; PCP Internal Medicine Infectious Disease
DX: R42 Dizziness and giddiness (principal); I10 Essential (primary) hypertension; E78.5 Hyperlipidemia, unspecified; E89.0 Postprocedural hypothyroidism; Z86.73 Personal history of transient ischemic attack (TIA), and cerebral infarction without residual deficits; Z87.891 Personal history of nicotine dependence; I44.0 Atrioventricular block, first degree; R94.31 Abnormal electrocardiogram [ECG] [EKG]
CPT/HCPCS: 36415; 71045; 80053; 81001; 83735; 85025; 93005; 96360; 99284; J7040

== ENCOUNTER 2022-06-09 14:16 | Observation (INO) | payer OTHER, SELFPAY ==
--- NOTE | ~2022-06-09 | CT_ITS ---
EXAMINATION: CT biopsy lung w/imaging DATE: 06/12/2022 12:22 INDICATION: Right lung mass TECHNIQUE: The procedure including the risks and benefits was discussed with the patient. Risks discu ssed included infection, approximately 1/20 risk of symptomatic hemorrhage beyond mild hemoptysis, ap proximately 1/3 risk of pneumothorax, and approximately 1/10 risk of pneumothorax severe enough to wa rrant chest tube placement. The patient understood the risks and agreed to proceed. The patient was p laced prone. The skin overlying the posterior right upper thorax was prepped and draped in sterile f ashion. 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 A 19 gauge outer nee dle was advanced under CT guidance to the lesion of interest. A 20 gauge core biopsy needle was then used to obtain 4 core biopsy specimens. The needle was removed and the entry site was cleaned and doug ssed. There were no immediate complications. The dose-length product was 187.10 mGy-cm. FINDINGS: CT images demonstrate the outer needle tip adjacent to a 2.7 x 1.9 cm suprahilar mass in th e posterior segment of the right upper lobe. IMPRESSION: 1. Successful CT-guided biopsy of a 2.7 x 1.9 cm right upper lobe suprahilar mass Reviewed, dictated and finalized at location A. IMPRESSION: 1. Successful CT-guided biopsy of a 2.7 x 1.9 cm right upper lobe suprahilar ma ss
--- NOTE | ~2022-06-09 | MR_ITS ---
EXAMINATION: MR brain/brain stem wo con DATE: 06/10/2022 09:50 INDICATION: Transient neurologic symptoms TECHNIQUE: Magnetic resonance imaging (MRI) of the brain and brainstem was performed without intraven ous contrast. Sequences included sagittal and axial T1-weighted SE, axial diffusion-weighted FS SE, a xial T2*-weighted GRE, axial T2-weighted FLAIR Propeller, and axial T2-weighted Propeller. Apparent d iffusion coefficient (ADC) maps were created. COMPARISON: CT dated 01/04/2021. FINDINGS: Generalized atrophy. Chronic left posterior parietal infarction with encephalomalacia. Ther e are scattered severe periventricular and subcortical white matter changes, most likely related to s mall vessel ischemic disease (microangiopathy). No midline shift. Small chronic focal right cerebella r infarction. There is evidence for acute infarction of the left parietal lobe extending medially to the left lateral ventricle. Orbits are symmetric without disconjugate gaze. Paranasal sinuses are unr emarkable. Midline sagittal images are unremarkable. IMPRESSION: 1. Acute left parietal infarction without significant mass effect or associated hemorrhage. 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 3: Advanced chronic age-related findings. Reviewed, dictated and finalized at location A.
--- NOTE | ~2022-06-09 | US_ITS ---
EXAMINATION: US venous doppler LE RT DATE: 06/09/2022 15:57 INDICATION: Right lower limb pain. TECHNIQUE: Grayscale images without and with compression and Doppler images of the right lower extrem ity veins were obtained. COMPARISON: None FINDINGS: The right common femoral vein, profunda (deep) femoral vein, femoral vein, popliteal vein, peroneal v ein, posterior tibial veins, gastrocnemius vein, and greater saphenous vein are patent. IMPRESSION: 1. Patent right lower extremity veins. No evidence of deep venous thrombosis. Reviewed, dictated and finalized at location K.
--- NOTE | ~2022-06-09 | XR_ITS ---
EXAMINATION: XR chest 1V portable DATE: 06/12/2022 13:14 INDICATION: One hour post percutaneous right lung biopsy. TECHNIQUE: frontal view of the chest was obtained. COMPARISON: Chest radiograph dated 06/12/2022 FINDINGS: Right suprahilar opacity corresponding to the biopsied nodule. Minimal streaky atelectasis at the lat eral left lower lung zone. No pneumothorax or pleural effusion. The cardiomediastinal silhouette is n ormal. Mild thoracic dextrocurvature. IMPRESSION: 1. No pneumothorax, pleural effusion or other acute cardiopulmonary disease post percutaneous biopsy of a suprahilar right upper lobe mass concerning for either primary bronchogenic carcinoma or pneumon ia. Reviewed, dictated and finalized at location A. IMPRESSION: 1. No pneumothorax, pleural effusion or other acute cardiopulmonary disease pos t percutaneous biopsy of a suprahilar right upper lobe mass concerning for eith er primary bronchogenic carcinoma or pneumonia.
--- NOTE | ~2022-06-09 | XR_ITS ---
EXAMINATION: XR chest 1V portable Exam Date/Time: 06/09/2022 16:06 CDT HISTORY: CVA; hx of HTN, prev smoker Comparison: CTA brain carotid, same date; x-ray chest 07/02/2021. RESULT: Lines, tubes, and devices: None. Lungs and pleura: Very subtle, new, opacity in the right suprahilar/paratracheal area, much better c haracterize on CT. Subtle diffuse reticulonodular opacities, a portion of which likely represent mult iple pulmonary nodules seen on CT. No pneumothorax. No focal consolidation. Cardiomediastinal silhouette: Stable. Right hilar and mediastinal lymphadenopathy seen on CT is not radiographically visualized. Other: No acute osseous or upper abdominal finding. IMPRESSION: Known right suprahilar mass, right hilar lymphadenopathy and mediastinal lymphadenopathy with multipl e bilateral pulmonary nodules all better demonstrated in the concurrent CTA examination. Reviewed, dictated and finalized at location K. IMPRESSION: Known right suprahilar mass, right hilar lymphadenopathy and mediastinal lympha denopathy with multiple bilateral pulmonary nodules all better demonstrated in the concurrent CTA examination.
--- NOTE | ~2022-06-09 | XR_ITS ---
EXAM: XR knee RT 3V DATE: 06/09/2022 20:32 HISTORY: knee pain; post lower leg cramping . COMPARISON: None available. FINDINGS: Normal mineralization. No fracture or dislocation. No lytic or blastic lesion. Mild right knee osteoarthritis. No erosion or periosteal change. Soft tissues within normal limits. IMPRESSION: No acute osseous finding in the right knee. Reviewed, dictated and finalized at location K.
--- NOTE | ~2022-06-09 | CT_ITS ---
EXAMINATION: CTA brain carotid DATE: 06/09/2022 15:42 INDICATION: CVA, RIGHT SIDED NUMBNESS/ RT FACIAL DROOP TECHNIQUE: Computed tomographic angiography (CTA) of the head was performed without and with 100 mL O mnipaque-350 intravenous contrast. CTA of the neck was performed with intravenous contrast. Automated exposure control and iterative reconstruction technique were employed. The dose-length product was 1 705.99 mGy-cm. Maximum intensity projection and volume rendered 3D-reconstructions were created by james soler technologist on a separate workstation. COMPARISON: CT brain 01/04/2021. FINDINGS: CT BRAIN: No acute large vessel infarct, intracranial hemorrhage, mass, or hydrocephalus. Moderate atrophy and chronic white matter change. Atherosclerotic intracranial calcification. Left parieto-occipital encep halomalacia likely from old infarct with ex vacuo dilation of the left lateral ventricle. Bilateral b madeleine ganglia and thalamic old lacunar infarcts. CTA HEAD: No large vessel occlusion, aneurysm, high flow vascular malformation, nidus or extravasation. Slightl y hypoplastic bilateral P1 segments, with prominent bilateral posterior communicating arteries. The a nterior to indicating artery is patent. Calcified plaque in the cavernous carotids, without significa nt stenosis. Patent cerebral veins. Symmetric parenchymal enhancement. CTA NECK: Aortic arch and proximal great vessels: Mild atherosclerotic calcifications at the visualized aortic arch. Right common carotid, carotid bifurcation, and internal carotid artery: Calcified plaque at the bifur cation.There is 0% stenosis of the proximal right internal carotid artery relative to normal distal a rtery lumen diameter (NASCET criteria). Left common carotid, carotid bifurcation, and internal carotid artery: Calcified plaque at the bifurc ation.There is 0% stenosis of the proximal left internal carotid artery relative to normal distal art osito lumen diameter (NASCET criteria). Vertebral arteries: No significant plaque or stenosis. Left vertebral artery is dominant. Other findings: Surgically absent left thyroid lobe. Subcentimeter right thyroid lobe hypodensity, re quiring no additional workup. 3.1 cm heterogeneously enhancing right suprahilar mass. Right hilar and mediastinal lymphadenopathy. Multiple bilateral pulmonary nodules measuring up to 6 mm in the right upper lobe. Degenerative changes in the cervical spine. IMPRESSION: 1. No acute large vessel infarct. No large vessel occlusion. No significant carotid or vertebral sten osis. 2. 3.1 cm right suprahilar mass with multiple pulmonary nodules, right hilar lymphadenopathy and medi astinal lymphadenopathy, concerning for carcinoma. Recommend nonemergent but timely CT of the chest w ith contrast if there are no acute chest complaints. Results of the noncontrast head CT reported telephonically to Dr. Conway by Dr. Mcguire at 3:49 PM on . Unexpected pulmonary findings reported to Dr. Conway by Dr. Mcguire at 4:07 PM on 06/09/2022. Reviewed, dictated and finalized at location K. IMPRESSION: 1. No acute large vessel infarct. No large vessel occlusion. No significant car otid or vertebral stenosis. 2. 3.1 cm right suprahilar mass with multiple pulmonary nodules, right hilar ly mphadenopathy and mediastinal lymphadenopathy, concerning for carcinoma. Recomm end nonemergent but timely CT of the chest with contrast if there are no acute chest complaints. Results of the noncontrast head CT reported telephonically to Dr. Conway by Dr. Mcguire at 3:49 PM on 06/09/2022. Unexpected pulmonary findings reported to Dr. Jayro carbajal by Dr. Mcguire at 4:07 PM on 06/09/2022.
--- NOTE | ~2022-06-09 | XR_ITS ---
EXAMINATION: XR chest 1V portable DATE: 06/12/2022 15:20 INDICATION: 3 hours post percutaneous right lung biopsy TECHNIQUE: frontal and lateral views of the chest were obtained. COMPARISON: Chest radiograph dated 06/12/22 FINDINGS: No interval change in the right suprahilar opacity corresponding to the previously biopsied right upp er lobe mass which is concerning for malignancy versus pneumonia. No new airspace opacities, pulmonar y edema, pleural effusion or pneumothorax. Heart size is normal. Mild thoracic dextrocurvature. IMPRESSION: 1. No pneumothorax or other acute cardiopulmonary disease post percutaneous biopsy of a right upper l obe mass concerning for either primary bronchogenic carcinoma or pneumonia. Reviewed, dictated and finalized at location A. IMPRESSION: 1. No pneumothorax or other acute cardiopulmonary disease post percutaneous bio psy of a right upper lobe mass concerning for either primary bronchogenic carci noma or pneumonia.
--- NOTE | ~2022-06-09 | CT_ITS ---
EXAMINATION: CT diagnostic chest wo con DATE: 06/10/2022 12:29 INDICATION: Right suprahilar mass TECHNIQUE: Computed tomography (CT) of the chest was performed without intravenous contrast. The dose -length product was 206.46 mGy-cm. Automated exposure control and iterative reconstruction technique were employed. COMPARISON: Chest x-ray dated 06/09/2022 FINDINGS: There is masslike consolidation in the right upper lobe in the suprahilar location containi ng air bronchograms. There are a few scattered nodules in both lungs, largest at the left apex measur ing 5 mm. There is mediastinal and right hilar lymphadenopathy. No significant pleural or pericardial effusion. Heart size normal. The upper abdomen is unremarkable. No pneumothorax. No endobronchial le sions. Mild thoracic spondylosis. IMPRESSION: 1. Right suprahilar masslike consolidation measuring 3.5 x 2.1 cm with associated air bronchograms pe ripherally. There are multiple bilateral pulmonary nodules measuring 5 mm or less. Differential diagn osis includes infectious/inflammatory etiologies as well as malignancy including primary bronchogenic carcinoma and metastatic disease. 2: Mediastinal and right hilar lymphadenopathy, nonspecific. Reviewed, dictated and finalized at location A. IMPRESSION: 1. Right suprahilar masslike consolidation measuring 3.5 x 2.1 cm with associat ed air bronchograms peripherally. There are multiple bilateral pulmonary nodule s measuring 5 mm or less. Differential diagnosis includes infectious/inflammato ry etiologies as well as malignancy including primary bronchogenic carcinoma an d metastatic disease. 2: Mediastinal and right hilar lymphadenopathy, nonspecific.
--- NOTE | ~2022-06-09 | XR_ITS ---
Portable chest x-ray Comparison: 06/09/2022 Clinical History: Postbiopsy Findings: There is mild haziness at the medial right upper lobe region. No pneumothorax evident. Lef t lung clear. Cardiomediastinal silhouette is stable. Bones and soft tissues are unremarkable. Impression: Hazy airspace disease medial right upper lobe, nonspecific. Probable biopsy results. No pneumothorax. Reviewed, dictated and finalized at location . Impression: Hazy airspace disease medial right upper lobe, nonspecific. Probable biopsy res ults. No pneumothorax.
[2022-06-09 14:28] VITALS: BP 149/76; PULSE 56; RESP 17; TEMP 37; O2SAT 99
--- NOTE | 2022-06-09 15:20 | ECG_ITS ---
Measurements Intervals [place] Rate: 53 P: 24 ND: 204 QRS: -14 QRSD: 97 T: 35 QT: 472 QTc: 443 Interpretive Statements SINUS BRADYCARDIA BORDERLINE AV CONDUCTION DELAY LEFT VENTRICULAR HYPERTROPHY BASELINE ARTIFACT- II, III, AVR BORDERLINE ECG COMPARED TO ECG 07/02/2021 16:33:50 SINUS BRADYCARDIA NOW PRESENT Electronically Signed On 06-09-2022 21:35:31 CDT by Александр Luz D.O.
--- NOTE | 2022-06-09 15:20 | ED.GENADULT ---
HPI - General Adult General Chief complaint: Extremity Injury, Lower Stated complaint: R leg pain Time Seen by Provider: 06/09/22 14:59 Source: patient and family Mode of arrival: ambulatory Limitations: no limitations History of Present Illness HPI narrative: 61 years old -[place] female came to the emergency room with intermittent pain at the right lower leg below the knee for months, got worse last night also patient noticed some numbness of the right hand yesterday. Patient's is telling me that the patient dragging her right leg during walking last night. History of hypertension, hyperlipidemia and thyroidectomy. Patient does not smoke or drink. Patient agreed with me about the facial asymmetry with right facial drooping. Related Data Home Medications Medication Instructions Recorded Confirmed losartan 50 mg tablet 50 mg PO DAILY 01/04/21 01/04/21 pravastatin 40 mg tablet 40 mg PO DAILY 01/04/21 01/04/21 hydrochlorothiazide 12.5 mg tablet mg 06/09/22 Allergies Allergy/AdvReac Type Severity Reaction Status Date / Time Penicillins Allergy Anaphylaxis Verified 06/09/22 16:28 Review of Systems Review of Systems: All systems reviewed & are unremarkable except as noted in HPI and below PMFSH Past Medical History Medical History History of CVA (cerebrovascular accident) History of hyperlipidemia History of hypertension Hypertension Surgical History Surgical History H/O thyroidectomy Partial left H/O tubal ligation Family History Family History Mother Cerebrovascular accident Sibling Cerebrovascular accident Sibling Heart attack Father Alzheimer's dementia Social History Social History Social History: The patient has 3 children and stop smoking approximately 3-4 months ago. The patient is and her is the durable power managing attorney for healthcare. The patient is unemployed. Code status full code Smoking packs per day: 0.5 Smoking cigarettes per day: 10.0 Years smoked: 40 Smoking pack-years: 20.00 Smoking status: Former smoker Tobacco type: cigarettes Alcohol intake: current Drinks per week: 1 Substance use: never Spiritual care concerns: No Exam Narrative: General appearance: Well-developed, well-nourished, right facial drooping, Skin: Normal color Head: Normocephalic, nontraumatic Eyes: Clear conjunctiva ENT: Oropharynx normal, ears normal, nose normal, edentulous Neck: Supple, nontender Chest and respiratory: Airway patent, no respiratory distress, no accessory muscle use Heart: Regular rate/rhythm Abdomen: Soft, nontender, no organomegaly, quiet bowel sounds Vascular: Normal peripheral pulses, normal capillary refill. Musculoskeletal: Normal range of motion, nontender back Neurologic: Alert and oriented ?3, TUTORING ASSISTANT is normal as tested, no gross motor deficit Course Reevaluation(s) Reevaluation #1: Patient still having the same symptoms and is unreliable, will be admitted for further evaluation. Patient agreed Date: 06/09/22 Time: 17:00 Consultations Consultation #1: Dr. Lechuga Date: 06/09/22 Time: 16:35 Consultation #2: Dr. Rees Date: 06/09/22 Time: 16:35 Vital Signs Vital signs: Vital Signs Temperature 37.0 C 06/09/22 14:28 Pulse Rate 56 L 06/09/22 14:28 Respiratory Rate 17 06/09/22 14:28 Blood Pressure 149/76 H 06/09/22 14:28 Pulse Oximetry 99 06/09/22 14:28 Oxygen Delivery Room Air 06/09/22 14:28 Temper
[2022-06-09 15:34] LABS: Estimated CRCL calculation 40 ml/min; Estimated Glomerular Filt Rate 46
[2022-06-09 15:48] LABS: Basophils Percent Auto 0.6 % (0.2-1.2); Eosinophils Absolute Auto 0.3 K/mm3 (0-0.3); Eosinophils Percent Auto 6.1 % (0-4.4); Hematocrit 38.2 % (37.0-47.0); Hemoglobin 12.5 g/dL (12.0-15.0); Immature Granulocyte Absolute 0.01 K/mm3 (0.00-0.031); Immature Granulocyte Percent A 0.2 % (0-0.5); Lymphocytes Absolute Auto 2.09 K/mm3 (0.9-3.2); Lymphocytes Percent Auto 40.8 % (18.3-44.2); Mean Corpuscular HGB Conc 32.7 g/dl (32-36); Mean Corpuscular Hemoglobin 26.8 pg (26-34); Mean Platelet Volume 9.4 fl (7.4-10.4); Monocytes Absolute Auto 0.4 K/mm3 (0.1-0.6); Monocytes Percent Auto 8.4 % (2.6-8.5); Neutrophils Absolute Auto 2.3 K/mm3 (1.3-6.7); Neutrophils Percent Auto 43.9 % (45.5-73.1); Platelet Count Result 259 k/mm3 (150-375); Red Blood Count 4.66 M/mm3 (4.2-5.4); White Blood Count 5.1 K/mm3 (4.5-10.0)
[2022-06-09 15:49] VITALS: O2SAT 100
[2022-06-09 15:59] LABS: INR 1.1; Prothrombin Time 13.5 Seconds (11.1-14.7)
[2022-06-09 16:05] LABS: Glucose Point of Care 81 mg/dl (65-105)
[2022-06-09 16:12] LABS: Troponin I < 0.012 ng/mL (0.000-0.034)
[2022-06-09 16:19] LABS: Alanine Aminotransferase 61 U/L (6-35); Albumin Level 4.8 g/dL (3.5-5.1); Alkaline Phosphatase 133 U/L (38-126); Anion Gap 4 mmol/L (8-16); Aspartate Amino Transferase 57 U/L (14-36); Bilirubin,Total 1.1 mg/dL (0.2-1.3); Blood Urea Nitrogen 22 mg/dL (7-17); Calcium 9.7 mg/dL (8.4-10.2); Carbon Dioxide 30 mmol/L (22-30); Chloride 103 mmol/L (98-107); Estimated CRCL calculation 46 ml/min; Estimated Glomerular Filt Rate 55; Glucose 96 mg/dL (65-110); Potassium 4.2 mmol/L (3.4-5.0); Sodium 137 mmol/L (137-145)
[2022-06-09 16:22] LABS: Erythrocyte Sedimentation Rate 16 mm/hr (0-20)
[2022-06-09 16:26] LABS: CRP 1.6 mg/dL (<1.0)
[2022-06-09 16:48] LABS: Hemoglobin A1C 5.9 % (<5.7)
--- NOTE | 2022-06-09 17:45 | PM.IMHP ---
H&P: HPI History of Present Illness Date/Time: 06/09/22 17:45 Chief Complaint: Right leg pain. Narrative: This is a 61-year-old female with history of bradycardia, hypertension, and hyperlipidemia who presented to the ED for evaluation of right leg pain. Patient provides the following history. She endorses frequent cramping in her right leg, mostly behind the knee and into the upper calf, which seems to occur more frequently at nighttime. 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 It was so severe that she had difficulties bearing weight on that knee. She took some Tylenol for that last night but it was not very helpful. She slept poorly due to the pain and came in today for evaluation. While being evaluated by the emergency department physician, he noticed that the right side of her face seemed to be a bit droopy and her speech was slurred. concurred that the right side of her face looked to be drooping; she is not currently wearing her dentures which is likely the reason for the slight slurred speech. She also mentioned some numbness in the right hand though that does not seem like it is a new finding for her and in fact it sounds like this is been an ongoing issue which is most consistent with carpal tunnel syndrome. Due to concerns for possible stroke a CTA of the head and neck was ordered; there was no large acute vessel infarct, occlusion, or significant carotid or vertebral stenosis noted. 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 With further questioning she has become increasingly fatigued in the last couple of months and has been complaining to her children of shortness of breath and intermittent chest pain. She denies headache, vertigo, visual changes, difficulty speaking and swallowing, cough, pleuritic pain, orthopnea, paroxysmal nocturnal dyspnea, edema, recent travel, history of venous thromboembolism, nausea, vomiting, diarrhea, dysuria, injury, and weight loss. Review of Systems Review of Systems: Twelve systems were reviewed and are negative except for as per HPI. [facility] Past Medical History Medical History (Updated 06/09/22 @ 19:46 by Tali Burden PA-C) Bradycardia Evaluated by a rock drill operator in [place]. Dyslipidemia Hypertension Surgical History Surgical History (Updated 06/09/22 @ 19:42 by Tali Burden PA-C) History of partial thyroidectomy Removal of a benign mass. History of tubal ligation Family History Family History Mother Cerebrovascular accident Sibling Cerebrovascular accident Sibling Heart attack Father Alzheimer's dementia Social History Social History Social History: Surrogate medical decision maker: Jabier Charles (spouse). Code status: Full code. Smoking packs per day: 0.5 Smoking cigarettes per day: 10.0 Years smoked: 40 Smoking pack-years: 20.00 Smoking status: Former smoker Tobacco type: cigarettes Alcohol intake: never Drinks per week: 1 Substance use: never Lack of Transportation: No Lack of Food: Never True Current Housing: I Have Housing Concerned About Future Housing: No Difficulty Paying Gas/Electric Bills: No Difficulty Paying for Meds: No Currently Unemployed: No Education: Decline to Answer Difficulty w/ Childcare or Family Care: No Additional living arrangements comments: Lives with spouse in [place]. 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 Spiritual care concerns: No Meds Home Medications and Allergies Home Medications Medication Instructions Recorded Confirmed Type losartan 50 mg tablet 50 mg PO DAILY 01/04/21 06/09/22 History pravastatin 40 mg tablet 40 mg PO DAILY 01/04/21 06/09/22 H
--- NOTE | 2022-06-09 18:50 | ADMGEN ---
This patient, Cathy Charles, was admitted to Medical Room 341-01. Patient/family oriented to hospital policies and general routines including ID bracelet, bed and alarms, visiting hours, pain management, procedures, bathroom and other care routines, personal items, smoking policy, room service/diet, and visiting hours. Information on how to activate the Rapid Response Team has been discussed. Patient/Family are encouraged to report perceived risks to care and to ask questions if they do not understand what they are told or what they should do.
[2022-06-09 19:20] LABS: Glucose Point of Care 94 mg/dl (65-105)
[2022-06-09 20:00] VITALS: PULSE 59
[2022-06-09] MEDS: ACETAMINOPHEN 325 MG TABLET 650 MG PO (20:08)
--- NOTE | 2022-06-09 20:21 | PC.NURSE ---
RADIOLOGY HERE TO XRAY RIGHT KNEE
[2022-06-09 20:35] VITALS: BMI 31.6
[2022-06-09 20:36] VITALS: BP 133/79; PULSE 76; RESP 16; TEMP 36.2; O2SAT 100
[2022-06-09 20:39] VITALS: BP 133/79; PULSE 76; RESP 16; TEMP 36.2; BMI 31.6
[2022-06-09] MEDS: SODIUM CHLORIDE 0.9% IV 1,000 ML 100 ML IV CONT (20:39)
[2022-06-10] VITALS (10 sets, daily range): BP systolic 104–140; BP diastolic 68–82; PULSE 62–87; RESP 18–20; TEMP 36.3–36.6; O2SAT 98–100
[2022-06-10 05:50] LABS: Hematocrit 36.1 % (37.0-47.0); Hemoglobin 11.6 g/dL (12.0-15.0); Mean Corpuscular HGB Conc 32.1 g/dl (32-36); Mean Corpuscular Volume 84.1 fl (80-100); Platelet Count Result 237 k/mm3 (150-375); Red Blood Count 4.29 M/mm3 (4.2-5.4); Red Cell Distribution Width 14.1 % (11.5-14.5); White Blood Count 4.8 K/mm3 (4.5-10.0)
[2022-06-10 05:54] LABS: Alanine Aminotransferase 54 U/L (6-35); Albumin Level 4.2 g/dL (3.5-5.1); Alkaline Phosphatase 129 U/L (38-126); Anion Gap 6 mmol/L (8-16); Aspartate Amino Transferase 47 U/L (14-36); Bilirubin,Total 0.8 mg/dL (0.2-1.3); Blood Urea Nitrogen 22 mg/dL (7-17); Calcium 8.9 mg/dL (8.4-10.2); Carbon Dioxide 28 mmol/L (22-30); Chloride 105 mmol/L (98-107); Cholesterol 140 mg/dL (0-200); Creatine Kinase 182 U/L (30-135); Estimated CRCL calculation 47 ml/min; Estimated Glomerular Filt Rate 55; Glucose 101 mg/dL (65-110); HDL Direct 47 mg/dL; Potassium 3.5 mmol/L (3.4-5.0); Sodium 139 mmol/L (137-145); Triglycerides 81 mg/dL (<150)
[2022-06-10 06:05] LABS: LDL Cholesterol Direct 65 mg/dL
[2022-06-10 06:59] LABS: Free T4 Free Thyroxine Reflex 1.17 ng/dL (0.78-2.19)
[2022-06-10] MEDS: ASPIRIN 81 MG ENTERIC TABLET PO (08:29)
[2022-06-10] MEDS: LOSARTAN POTASSIUM 50 MG TABLET PO (08:29)
[2022-06-10] MEDS: PRAVASTATIN SODIUM 20 MG TABLET 40 MG PO (08:29)
[2022-06-10 08:43] LABS: Total Triiodothyronine (T3) 1.76 NG/ML (0.97-1.69)
[2022-06-10] MEDS: ACETAMINOPHEN 325 MG TABLET 650 MG PO (10:55)
--- NOTE | 2022-06-10 13:19 | PM.IMPN ---
Progress Note: A&P Assessment and Plan (1) Right knee pain: Code(s): M25.561 - Pain in right knee Status: Acute Assessment and Plan: This is the main complaint for the patient's presentation today. Concerns were for DVT however venous Doppler ultrasound was negative for such. There was no mention of Acuna's cyst on the Doppler either. The joint is not red, swollen, or remarkably tender. Radiographs ordered to further assess. Could be statin related? (2) Transient neurological symptoms: Code(s): R29.818 - Other symptoms and signs involving the nervous system Status: Acute Assessment and Plan: Emergency department physician noted that the patient had some drooping of the right side of her mouth and had mild right upper extremity pronator drift as well. This was transient and not present at the time my evaluation. This is the main reason that I was asked to admit the patient. She will be monitored on telemetry. Echocardiogram and brain MRI ordered for further evaluation. (3) Mass of right lung: Code(s): R91.8 - Other nonspecific abnormal finding of lung field Status: Acute Assessment and Plan: Incidental 3.1 cm right suprahilar mass was noted on CTA of the head and neck concerning for carcinoma. She is a former smoker and quit couple of years ago. With further questioning she has been complaining of shortness of breath and some chest discomfort with exertion. Chest CT ordered for further evaluation. (4) Bradycardia: Code(s): R00.1 - Bradycardia, unspecified Status: Acute Assessment and Plan: She was previously worked up for this by a environmental projects advisor in [place]. Asymptomatic. Check TSH. (5) Renal insufficiency: Code(s): N28.9 - Disorder of kidney and ureter, unspecified Status: Acute Assessment and Plan: Baseline creatinine looks to be about 1.0. Hydrate overnight given elevated BUN. Hold hydrochlorothiazide for now. (6) Elevated LFTs: Code(s): R79.89 - Other specified abnormal findings of blood chemistry Status: Acute Assessment and Plan: Mildly elevated on previous labs last year. Not a new finding, can be monitored as an outpatient. (7) Hypertension: Code(s): I10 - Essential (primary) hypertension Status: Chronic Assessment and Plan: Blood pressures were reviewed and they have been reasonable. Continue losartan and monitor closely. (8) Dyslipidemia: Code(s): E78.5 - Hyperlipidemia, unspecified Status: Acute Assessment and Plan: Hold pravastatin for now, perhaps her muscle pains are related to that. Check CK. . Plan Acute left parietal stroke MRi showed left parietal stoke ECHO, lipid panel, a1c Continue Aspirin, Lipitor 40mg ST/OT/PT Neurology consulted permissive hypertension, hold Losartan monitor Lung mass vs PNA Blood and sputum cultures start Levaquin Pulm consulted Right knee pain Xray right knee and venous doppler negative pain control (4) Bradycardia: She was previously worked up for this by a environmental projects advisor in [place]. Asymptomatic. Check TSH. BILL, improving Baseline creatinine looks to be about 1.0. Hydrate overnight given elevated BUN. Hold hydrochlorothiazide for now. (6) Elevated LFTs AST/ALT 47/54 Mildly elevated on previous labs last year. Not a new finding, can be monitored as an outpatient. (7) Hypertension: Blood pressures were reviewed and they have been reasonable. Continue losartan and monitor closely. (8) Dyslipidemia: Hold pravastatin for now, perhaps her muscle pains are related to that. Check CK. Sq lovenox Subjective Date/time seen: 06/10/22 13:19 patient seen at bedside this morning, noted she came to the ER for right knee pain. However in the ER she was noted to have facial droop with slurred speech and was evaluated for possible stroke MRI brain showed acute
[2022-06-11] VITALS (11 sets, daily range): BP systolic 124–146; BP diastolic 77–84; PULSE 63–91; RESP 16–18; TEMP 36.4–36.9; O2SAT 94–100
[2022-06-11] MEDS: ENOXAPARIN 40 MG/0.4 ML SYRINGE SUB-Q (08:49)
[2022-06-11] MEDS: ATORVASTATIN 40 MG TABLET PO (08:50)
[2022-06-11] MEDS: ASPIRIN 81 MG ENTERIC TABLET PO (08:50)
--- NOTE | 2022-06-11 11:00 | PCSTNOTE ---
Communication evaluation completed. Please see report in the EMR.
--- NOTE | 2022-06-11 11:35 | WPDNEURCNPN ---
Assessment and Plan Assessment and plan (1) Mass of right lung: Code(s): R91.8 - Other nonspecific abnormal finding of lung field Status: Acute (2) Transient neurological symptoms: Code(s): R29.818 - Other symptoms and signs involving the nervous system Status: Acute Plan 1 Left parietal infarction 2. Chronic left posterior parietal and right cerebellar infarction. 3. Right suprahilar mask consolidation and mediastinal and hilar lymphadenopathy 4. Pulmonary consultation awaited but the findings briefly discussed with the patient also awaiting the surface echocardiogram also discussed the findings of the CTA Consult date: 06/11/22 HPI: Cathy Charles is a 61 year old female admitted to the hospital through the emergency room for the complaints of intermittent pain in right lower extremity in addition to the numbness of the right hand on the day of visit to the emergency room reportedly as per the she was dragging her right lower extremity to walk in the house. She does have ongoing history of 1. Hypertension 2. Hyperlipidemia 3. Thyroidectomy she does not smoke or drink and her medication as an outpatient included losartan 50 mg daily with pravastatin 40 mg daily hydrochlorothiazide 12.5 mg take she does have a history of years smoked 40 his smoking pack years of 20 but former smoker and current alcohol intake, her initial vital signs were normal so as the routine labs including CBC and BMP she had head and neck CTA in the emergency room which documented 3.1cm right suprahilar mass with multiple pulmonary nodules and right hilar lymphadenopathy and mediastinal lymphadenopathy raising the possibility of carcinoma CT scan of the head without contrast was normal so as the EKG without atrial fibrillation since admission she has had the MRI of the brain which documented acute left parietal infarction without significant mass or associated hemorrhage in addition to chronic left posterior parietal and right cerebellar infarction as well CT of the chest has been done which documented right suprahilar masslike consolidation measuring 3.5x2.1cm with associated air bronchograms peripherally in addition to bilateral pulmonary nodules raising the possibility in fractures versus malignancy pulmonary consultation has been obtained which is pending at this particular time she has also undergone ultrasound of the Doppler study lower extremity and the right lower extremity study is negative Review of Systems Review of Systems: All systems reviewed & are unremarkable except as noted in HPI and below [facility] Past Medical History Medical History (Updated 06/09/22 @ 19:46 by Tali G. Gerling, PA-C) Bradycardia Evaluated by a rn anesthetist in [place]. Dyslipidemia Hypertension Surgical History Surgical History (Updated 06/09/22 @ 19:42 by Tali Burden PA-C) History of partial thyroidectomy Removal of a benign mass. History of tubal ligation Family History Family History Mother Cerebrovascular accident Sibling Cerebrovascular accident Sibling Heart attack Father Alzheimer's dementia Social History Social History Social History: Surrogate medical decision maker: Jabier Charles (spouse). Code status: Full code. Smoking packs per day: 0.5 Smoking cigarettes per day: 10.0 Years smoked: 40 Smoking pack-years: 20.00 Smoking status: Former smoker Tobacco type: cigarettes Alcohol intake: never Drinks per week: 1 Substance use: never Lack of Transportation: No Lack of Food: Never True Current Housing: I Have Housing Concerned About Future Housing: No Difficulty Paying Gas/Electric Bills: No Difficulty Paying for Meds: No Currently Unemployed: No Education: Decline to Answer Difficulty w/ Childcare or Family Care: No Additional living arrangemen
--- NOTE | 2022-06-11 12:42 | PM.IMPN ---
Progress Note: A&P Assessment and Plan (1) Right knee pain: Code(s): M25.561 - Pain in right knee Status: Acute Assessment and Plan: Resolved. Doppler ultrasound was negative for such. There was no mention of Acuna's cyst on the Doppler either. (2) Transient neurological symptoms: Code(s): R29.818 - Other symptoms and signs involving the nervous system Status: Acute Assessment and Plan: Pt seen by neurology see recommendations (3) Mass of right lung: Code(s): R91.8 - Other nonspecific abnormal finding of lung field Status: Acute Assessment and Plan: Incidental 3.1 cm right suprahilar mass was noted on CTA of the head and neck concerning for carcinoma. She is a former smoker and quit couple of years ago. With further questioning she has been complaining of shortness of breath and some chest discomfort with exertion. CT chest - 1. Right suprahilar masslike consolidation measuring 3.5 x 2.1 cm with associated air bronchograms peripherally. There are multiple bilateral pulmonary nodules measuring 5 mm or less. Differential diagnosis includes infectious/inflammatory etiologies as well as malignancy including primary bronchogenic carcinoma and metastatic disease. 2: Mediastinal and right hilar lymphadenopathy, nonspecific Consult pulmonology Continue IV levaquin to treat for infection (4) Bradycardia: Code(s): R00.1 - Bradycardia, unspecified Status: Acute Assessment and Plan: She was previously worked up for this by a business analyst sales operations in [place]. Asymptomatic. Check TSH.Pt had echo today (5) Renal insufficiency: Code(s): N28.9 - Disorder of kidney and ureter, unspecified Status: Acute Assessment and Plan: Watch creat level (6) Elevated LFTs: Code(s): R79.89 - Other specified abnormal findings of blood chemistry Status: Acute Assessment and Plan: Mildly elevated (7) Hypertension: Code(s): I10 - Essential (primary) hypertension Status: Chronic Assessment and Plan: Blood pressures were reviewed and they have been reasonable. Continue losartan and monitor closely. (8) Dyslipidemia: Code(s): E78.5 - Hyperlipidemia, unspecified Status: Acute Assessment and Plan: Hold pravastatin for now, perhaps her muscle pains are related to that. Check CK. . Subjective Date/time seen: 06/11/22 12:42 Pt seen at the bedside no complaints Admitted with R knee pain and hilar mass found on ct chest Pt had echo today Pt seen by neurology Awaiting to see contract agent Pt had mri had and ct chest already H/o of smoking Review of Systems Review of Systems: No complaints All systems reviewed & are unremarkable except as noted in HPI and below Exam Narrative: General: Well-developed female sitting up in bed in no acute distress. HEENT: Normocephalic, atraumatic. Respiratory: Lung sounds are diminished at the bases but otherwise clear to auscultation. Cardiovascular: Regular rate and rhythm with S1-S2. Gastrointestinal: Abdomen is soft, nontender, and nondistended with positive bowel sounds. Skin: Warm and dry. No rash or lesions on limited exam. Extremities: No cyanosis, clubbing, or edema. Radial and pedal pulses intact. No palpable knots or cords. Negative Luis sign bilaterally. Musculoskeletal: Normal active and passive range of motion of the right knee. Mild tenderness to palpation in the popliteal space. Neurological: Alert and oriented. Cranial nerves 2-12 are grossly intact. Speech is clear. No overt facial asymmetry, possibly mild right mouth droop. Speech is a bit slurred though her dentures are not in at this time. No pronator drift. Normal [id number] and rapid alternating movements. Sensation intact throughout. Strength 5/5 in upper and lower extremities. Psychiatric: Pleasant and cooperative with normal mood and affect. Judgmen
--- NOTE | 2022-06-11 16:32 | PM.CNPUL ---
Assessment and Plan Assessment and plan (1) Mass of right lung: Code(s): R91.8 - Other nonspecific abnormal finding of lung field Status: Acute Assessment and Plan: Patient with a history of a 32 pack year tobacco use, quit in 2019 presents now with a acute left parietal infarct. Incidentally she was found to have a right hilar mass on her CT a of the head and neck which is confirmed with CT of the chest. The patient also has surrounding infiltrate And denies any fever, chills, rigors, phlegm, hemoptysis. I am concerned about the possibility for lung cancer and I have reviewed the CT scan with the radiologist and this mass is amenable to CT-guided biopsy. I have discussed the benefits and risks with the patient, her in the room and her daughter on speaker phone. The patient is willing to undergo CT-guided biopsy. I have made the patient NPO past midnight and will check PT PTT and INR in the morning. Agree with continuation of levofloxacin for now (day 2). If there are no complications following the CT-guided biopsy the patient can be discharged home from a pulmonary perspective. Will follow with you. History of Present Illness History of Present Illness Consult date: 06/11/22 Chief complaint: CVA, Lung Mass Narrative: 06/11/2022: This is a new pulmonary consult for lung mass: 61-year-old with a history of hypertension and hyperlipidemia found to have a left lung mass on admission to the hospital for right leg weakness. On 06/08/2022 the patient was at work and developed right leg weakness, cramps and she presented to the hospital on 06/09/22. patient had an CT angiogram of the head and neck on 06/09 that demonstrated a right paratracheal mass and an MRI that demonstrated a acute left parietal infarct. patient had a CT scan of the chest on 06/10/2022 that demonstrated a 3.5 x 2.1 cm right suprahilar mass with associated surrounding infiltrate. There were no subcarinal lymph nodes. Today the patient tells me that her right leg is now normal except for some continued weakness. She also tells me that for the last year she has had some worsening dyspnea on exertion but 1 month ago she could walk around the block 4 times. She denies fever, chills, rigors, cough, phlegm production, hemoptysis, chest pain or new lymphadenopathy or masses. Patient smoked tobacco from age [age] at 1 pack per day for total of 32 pack years. Patient was exposed to secondhand smoke from both parents. Patient was exposed to secondhand smoke from her until 4 years ago when he started smoking outside. Patient denies vaping, illicit drug use, sandblasting, welding, asbestos were, professional painting or steel jig mill operator. 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 Patient denies cancer, chemotherapy or radiation therapy. 06/11 Currently the patient denies, her room air saturations are 94%. DATA: 06/10/22 EXAMINATION: CT diagnostic chest wo con INDICATION: Right suprahilar mass COMPARISON: Chest x-ray dated 06/09/2022 FINDINGS: There is masslike consolidation in the right upper lobe in the suprahilar location containing air bronchograms. There are a few scattered nodules in both lungs, largest at the left apex measuring 5 mm. There is mediastinal and right hilar lymphadenopathy. No significant pleural or pericardial effusion. Heart size normal. The upper abdomen is unremarkable. No pneumothorax. No endobronchial lesions. Mild thoracic spondylosis. IMPRESSION: 1. Right suprahilar masslike consolidation measuring 3.5 x 2.1 cm with associated air bronchograms peripherally. There are multiple bilateral pulmonary nodules measuring 5 mm or less. Differential diagnosis includes infectious/inflammatory etiologies as well as malignancy including primary bronchogenic carcinoma and metastatic disease. 2: Mediastinal and right hilar lymphadenopathy, nonspecific.
--- NOTE | 2022-06-11 19:54 | ECHO_ITS ---
Patient Info Name: Cathy Charles Age: 61 years : 1960 Gender: Female Ht: 65 in Wt: 191 lbs BSA: 2.02 m2 HR: 68 bpm BP: 128 / 84 mmHg Heart Rhythm: Sinus Rhythm Technical Quality: Fair Exam Date: 06/11/2022 9:42 AM Exam Location: [facility] Pulmonary Exam Room: 341 Patient Status: Inpatient Admit Date: 06/09/2022 Staff Ordering Physician: Tali Burden PA-C Nitro Worker: Ines Comer RDCS Attending Provider: Mya Sharma MD Referring Physician: Bertram BENOIT; Exam Type: CA echo doppler color flow Study Info Indications - htn 786.09 - Dyspnea R07.89 - Other chest pain Complete two-dimensional, color flow and Doppler transthoracic echocardiogram is performed. Summary 1. Complete two-dimensional, color flow and Doppler transthoracic echocardiogram is performed. 2. Moderate concentric left ventricular hypertrophy with hyperdynamic systolic function. 3. Grade 1 diastolic noncompliance. 4. No significant valvular dysfunction. Left Ventricle Left ventricular chamber dimension is normal. Left ventricular systolic function is hyperdynamic, estimated at >70%. There is moderate concentric increased left ventricular wall thickness. The left ventricular diastolic function is grade I diastolic dysfunction. Right Ventricle Right ventricular chamber dimension is normal. Left Atria Left atrial chamber dimension is normal. Right Atria Right atrial chamber dimension is normal. Aortic Valve The aortic valve is trileaflet. There is mild aortic valve sclerosis. Pulmonic Valve The pulmonic valve is normal. Mitral Valve The mitral valve has normal leaflets. The mitral valve annulus is mildly calcified. Tricuspid Valve The tricuspid valve leaflets are normal. Pericardium/Pleural The pericardium appears normal. Aorta The aortic root size at the sinus of Valsalva is normal. Left Ventricular Outflow Tract Name Value Normal LVOT 2D LVOT Diameter 2.0 cm LVOT Doppler LVOT Peak Gradient 4 mmHg LVOT Mean Gradient 3 mmHg LVOT VTI 20 cm LVOT VTI/AV VTI Ratio 0.7 LVOT Stroke Volume 61 ml LVOT CO 14.7 l/min LVOT CI 7.3 l/min/m2 Pulmonic Valve Name Value Normal PV Doppler PV Peak Gradient 3 mmHg Mitral Valve Name Value Normal MV Doppler MV [place]el [place] 245 cm/s2 MV PHT
[2022-06-12] VITALS: PULSE 73
[2022-06-12 04:00] VITALS: PULSE 69
[2022-06-12 05:05] VITALS: BP 105/62; PULSE 77; RESP 17; TEMP 36.6; O2SAT 97
[2022-06-12 05:55] LABS: INR 1.2; Prothrombin Time 14.3 Seconds (11.1-14.7)
[2022-06-12 09:00] VITALS: PULSE 77; RESP 17; O2SAT 97
--- NOTE | 2022-06-12 09:03 | PM.PNPUL ---
Progress Note: A&P Assessment and Plan (1) Mass of right lung: Code(s): R91.8 - Other nonspecific abnormal finding of lung field Status: Acute Assessment and Plan: Patient with a history of a 32 pack year tobacco use, quit in 2019 presents now with a acute left parietal infarct. Incidentally she was found to have a right hilar mass on her CT a of the head and neck which is confirmed with CT of the chest. The patient also has surrounding infiltrate And denies any fever, chills, rigors, phlegm, hemoptysis. I am concerned about the possibility for lung cancer and I have reviewed the CT scan with the radiologist and this mass is amenable to CT-guided biopsy. I have discussed the benefits and risks with the patient, her in the room and her daughter on speaker phone. The patient is willing to undergo CT-guided biopsy. I have made the patient NPO past midnight and will check PT PTT and INR in the morning. Agree with continuation of levofloxacin for now (day 2). If there are no complications following the CT-guided biopsy the patient can be discharged home from a pulmonary perspective. 06/12 patient has no respiratory complaints and said she slept well. She is breathing normally. Room air saturations are 97%. Her coags are normal. Plan: patient is scheduled to have CT-guided lung biopsy later today. If there are no complications from the biopsy, patient can be discharged today from a pulmonary perspective. I will call the patient to discuss the results of the biopsy with her after the results are back. If cancer is identified, she prefers to be treated locally and I will refer to Dr. Mccabe. If cancer or infection is not identified, I will refer her for bronchoscopy with EBUS. I have discussed this plan with the patient and the daughter (Fidel) on speaker phone and will call the patient on her cell phone [phone] once results are available. Patient should follow in the Pulmonary Clinic in 3-4 weeks, I gave her our business card and informed our museum service scheduler. Will sign off, call with questions. Subjective Date/time seen: 06/12/22 09:03 Interval history: ?06/11/2022:? This is a new pulmonary consult for lung mass: 61-year-old with a history of hypertension and hyperlipidemia found to have a left lung mass on admission to the hospital for right leg weakness.? On 06/08/2022 the patient was at work and developed right leg weakness, cramps and she presented to the hospital on 06/09/22.? patient had an? CT angiogram of the head and neck on 06/09 that demonstrated a right paratracheal mass and an MRI that demonstrated a acute left parietal infarct.? patient had a CT scan of the chest on 06/10/2022 that demonstrated a 3.5 x 2.1 cm right suprahilar mass with associated surrounding infiltrate.? There were no subcarinal lymph nodes.? Today the patient tells me that her right leg is now normal except for some continued weakness.? She also tells me that for the last year she has had some worsening dyspnea on exertion but 1 month ago she could walk around the block 4 times.? She denies fever, chills, rigors, cough, phlegm production, hemoptysis, chest pain or new lymphadenopathy or masses.? Patient smoked tobacco from age [age] at 1 pack per day for total of 32 pack years.? Patient was exposed to secondhand smoke from both parents.? Patient was exposed to secondhand smoke from her until 4 years ago when he started smoking outside.? Patient denies vaping, illicit drug use, sandblasting, welding, asbestos were, professional painting or steel pulverizer mill operator.? 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 Patient denies cancer, chemotherapy or radiation therapy. 06/11 ? Currently the patient denies cough, phlegm, shortness of breath or hemoptysis. Her room air saturations are 94%. 06/12 patient has no respiratory complaints and said she slept well. She is breathing norm
[2022-06-12] MEDS: ATORVASTATIN 40 MG TABLET PO (09:08)
--- NOTE | 2022-06-12 13:07 | PCOTNOTE ---
Attempted to see Patient for P.M. treatment session. Patient unable to be seen this afternoon due to having a lung biopsy performed and required to lay flat for 4 hours.
--- NOTE | 2022-06-12 13:52 | PM.DS ---
DS: Admitting Diagnosis Discharge Date 06/12/2022 Admitting Diagnosis 06/09/2022 DS: Discharge Diagnosis Discharge Diagnosis (1) Right knee pain: Code(s): M25.561 - Pain in right knee Status: Acute Assessment and Plan: Resolved. Doppler ultrasound was negative for such. There was no mention of Acuna's cyst on the Doppler either. (2) Transient neurological symptoms: Code(s): R29.818 - Other symptoms and signs involving the nervous system Status: Acute Assessment and Plan: Likely pt has had a stroke no focal deficits noted MRI was positive for Acute left parietal infarction without significant mass effect or associated hemorrhage. 2:? 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 3: Advanced chronic age-related findings. US carotids -IMPRESSION: 1. <50% stenosis in the right internal carotid artery. 2. <50% stenosis in the left internal carotid artery. ECHO - Left Ventricle ? Left ventricular chamber dimension is normal. ? Left ventricular systolic function is hyperdynamic, estimated at >70%. ? There is moderate concentric increased left ventricular wall thickness. ? The left ventricular diastolic function is grade I diastolic dysfunction Pt advised to quit smoking and take her ASA and statin No focal weakness seen pt is stable for DC (3) Mass of right lung: Code(s): R91.8 - Other nonspecific abnormal finding of lung field Status: Acute Assessment and Plan: Incidental 3.1 cm right suprahilar mass was noted on CTA of the head and neck concerning for carcinoma. She is a former smoker and quit couple of years ago. With further questioning she has been complaining of shortness of breath and some chest discomfort with exertion CT chest - 1. Right suprahilar masslike consolidation measuring 3.5 x 2.1 cm with associated air bronchograms peripherally. There are multiple bilateral pulmonary nodules measuring 5 mm or less. Differential diagnosis includes infectious/inflammatory etiologies as well as malignancy including primary bronchogenic carcinoma and metastatic disease. 2: Mediastinal and right hilar lymphadenopathy, nonspecific Consult pulmonology pt to have her lung biopsy and follow results with pulmologist Continue IV Levaquin to treat for infection transition to oral Levaquin on DC (4) Bradycardia: Code(s): R00.1 - Bradycardia, unspecified Status: Acute Assessment and Plan: She was previously worked up for this by a livestock slaughterer in [place]. (5) Renal insufficiency: Code(s): N28.9 - Disorder of kidney and ureter, unspecified Status: Acute Assessment and Plan: Watch creat level (6) Elevated LFTs: Code(s): R79.89 - Other specified abnormal findings of blood chemistry Status: Acute Assessment and Plan: Mildly elevated (7) Hypertension: Code(s): I10 - Essential (primary) hypertension Status: Chronic Assessment and Plan: Continue losartan (8) Dyslipidemia: Code(s): E78.5 - Hyperlipidemia, unspecified Status: Acute Assessment and Plan: continue statin on DC DS: Summary Hospital Course Hospital Course: 61-year-old female with history of bradycardia, hypertension, and hyperlipidemia who presented to the ED for evaluation of right leg pain. Patient provides the following history. She endorses frequent cramping in her right leg, mostly behind the knee and into the upper calf, which seems to occur more frequently at nighttime. 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 It was so severe that she had difficulties bearing weight on that knee. She took some Tylenol for that last night but it was not very helpful. She slept poorly due to the pain and came in today for evaluation. While being evaluated by the emergency department physician, he noticed that the right side of her
[2022-06-12 15:00] VITALS: BP 121/77; PULSE 67; RESP 18; TEMP 36.5; O2SAT 99
== END 2022-06-12 17:15 | disposition home or self-care (01) ==
LOC: ANHED 16:44 → ANH3MED 06-12 09:27
PROVIDERS: Internal Medicine Pulmonary Disease; Physician Assistant; Admitting Provider Family Medicine; Emergency Provider Emergency Medicine; PCP Internal Medicine Infectious Disease; Visit Provider Family Medicine
DX: M25.561 Pain in right knee (principal); R29.818 Other symptoms and signs involving the nervous system; R29.810 Facial weakness; R91.8 Other nonspecific abnormal finding of lung field; R00.1 Bradycardia, unspecified; N28.9 Disorder of kidney and ureter, unspecified; R79.89 Other specified abnormal findings of blood chemistry; I11.9 Hypertensive heart disease without heart failure; E78.5 Hyperlipidemia, unspecified; E89.0 Postprocedural hypothyroidism; R25.2 Cramp and spasm; R47.81 Slurred speech; R59.1 Generalized enlarged lymph nodes; F10.90 Alcohol use, unspecified, uncomplicated; R06.02 Shortness of breath; Z87.891 Personal history of nicotine dependence; Z86.73 Personal history of transient ischemic attack (TIA), and cerebral infarction without residual deficits; Z79.899 Other long term (current) drug therapy
CPT/HCPCS: 32408; 36415; 70496; 70498; 70551; 71045; 71250; 73562; 80053; 80061; 82550; 82948; 83036; 83735; 84439; 84443; 84480; 84484; 85025; 85027; 85610; 85652; 85730; 86140; 87040; 88305; 92523; 93005; 93306; 93971; 96365; 96366; 96372; 97110; 97116; 97161; 97165; 99285; A9270; G0378; G0379; J1650; J1956; J7030; Q9967

== ENCOUNTER 2022-06-16 10:57 | Emergency (ER) | payer OTHER, SELFPAY ==
--- NOTE | ~2022-06-16 | US_ITS ---
EXAMINATION: US venous doppler UE RT DATE: 06/16/2022 12:36 INDICATION: Right upper extremity ecchymosis TECHNIQUE: Grayscale ultrasound images without and with compression and Doppler ultrasound images of the right upper extremity veins were obtained. COMPARISON: None. FINDINGS: The right internal jugular vein, subclavian vein, axillary vein, brachial veins, basilic vein, cephal ic vein, radial vein, and ulnar vein are patent. IMPRESSION: 1. No evidence of deep venous thrombosis. Reviewed, dictated and finalized at location A.
[2022-06-16 11:06] VITALS: BP 128/71; PULSE 87; RESP 16; TEMP 36.5; O2SAT 99
--- NOTE | 2022-06-16 11:29 | ED.EXTPRO ---
HPI - Extremity Problem General Chief complaint: Extremity Problem,Nontraumatic Stated complaint: bruise to R upper posterior arm Time Seen by Provider: 06/16/22 11:10 History of Present Illness HPI Narrative: 61-year-old female who has a recent history of a CVA presents to the emergency room for evaluation of bruise to the back of her right upper extremity. Patient denies any known injury or trauma. Patient was recently discharged from hospital due to her CVA and in parahilar mass. Patient was started on antithrombotics while in the hospital and continues taking aspirin. Denies any shortness of breath or difficulty breathing. Related Data Home Medications Medication Instructions Recorded Confirmed losartan 50 mg tablet 50 mg PO DAILY 01/04/21 06/09/22 pravastatin 40 mg tablet 40 mg PO DAILY 01/04/21 06/09/22 hydrochlorothiazide 12.5 mg tablet 12.5 mg PO DAILY 06/09/22 06/09/22 meclizine 25 mg tablet 25 mg PO BID PRN Dizziness 06/09/22 06/09/22 meloxicam 15 mg tablet 15 mg PO DAILY PRN Pain 06/09/22 06/09/22 Allergies Allergy/AdvReac Type Severity Reaction Status Date / Time Penicillins Allergy Anaphylaxis Verified 06/16/22 10:58 Review of Systems Review of Systems: CONSTITUTIONAL: Denies fever, chills, or sweats. EYES: Denies visual changes, redness, or discharge. ENT: Denies rhinorrhea, congestion, sore throat, or otalgia. CARDIOVASCULAR: Denies chest pain, palpitations, or edema. RESPIRATORY: Denies cough or dyspnea. GASTROINTESTINAL: Denies abdominal pain, nausea, vomiting, or diarrhea. GENITOURINARY: Denies dysuria or hematuria. SKIN: Denies rash or itching. MUSCULOSKELETAL: Denies back pain, joint pain, or myalgia. NEUROLOGIC: Denies headache, numbness, dizziness, or weakness. PSYCHIATRIC: Denies anxiety or depression. [facility] Past Medical History Medical History Bradycardia Evaluated by a java web user interface developer in [place]. Dyslipidemia Hypertension Surgical History Surgical History History of partial thyroidectomy Removal of a benign mass. History of tubal ligation Family History Family History Mother Cerebrovascular accident Sibling Cerebrovascular accident Sibling Heart attack Father Alzheimer's dementia Social History Social History Social History: Surrogate medical decision maker: Jabier Charles (spouse). Code status: Full code. Smoking packs per day: 0.5 Smoking cigarettes per day: 10.0 Years smoked: 40 Smoking pack-years: 20.00 Smoking status: Former smoker Tobacco type: cigarettes Alcohol intake: never Drinks per week: 1 Substance use: never Lack of Transportation: No Lack of Food: Never True Current Housing: I Have Housing Concerned About Future Housing: No Difficulty Paying Gas/Electric Bills: No Difficulty Paying for Meds: No Currently Unemployed: No Education: Decline to Answer Difficulty w/ Childcare or Family Care: No Additional living arrangements comments: Lives with spouse in [place]. 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 Spiritual care concerns: No Exam Narrative: GENERAL: Well-appearing, well-nourished, no physical limitations, and in no acute distress. HEAD: Normocephalic, atraumatic. EYES: Conjunctivae normal, PERRLA and EOMI. CHEST: Clear to auscultation. No respiratory distress. No wheezes rales or rhonchi. HEART: Regular rate and rhythm. No murmur heard. Normal peripheral pulses. ABDOMEN: Soft, nontender, nondistended, normal active bowel sounds. EXTREMITIES: Normal range of motion. No edema. No clubbing or cyanosis SKIN: Warm, dry, no rash. 4 cm circular area of ecchymosis to the posterior surface of the right upper extremity NEURO: No focal deficits. Alert and
== END 2022-06-16 13:11 | disposition home or self-care (01) ==
PROVIDERS: Emergency Provider Nurse Practitioner Family; PCP Internal Medicine Infectious Disease
DX: S40.021A Contusion of right upper arm, initial encounter (principal); I10 Essential (primary) hypertension; E78.5 Hyperlipidemia, unspecified; Z87.891 Personal history of nicotine dependence; Z86.73 Personal history of transient ischemic attack (TIA), and cerebral infarction without residual deficits
CPT/HCPCS: 93971; 99284

== ENCOUNTER 2023-05-21 11:22 | Emergency (ER) | payer OTHER, SELFPAY ==
[2023-05-21 11:25] VITALS: BP 131/77; PULSE 67; RESP 20; TEMP 36.4; O2SAT 96
[2023-05-21 12:13] VITALS: BP 126/72; PULSE 57; RESP 15; O2SAT 98
--- NOTE | 2023-05-21 12:30 | ED.NAVMDI ---
HPI - Nausea/Vomiting/Diarrhea General Chief complaint: Nausea/Vomiting/Diarrhea Stated complaint: Diarrhea x3 days Time Seen by Provider: 05/21/23 11:57 History of Present Illness HPI Narrative: This is a 62-year-old female, with history of hypertension, hyperlipidemia and stroke 1 year ago, presents emergency department complaining loose stools and abdominal cramping. The patient states 3 days ago, she ate at a buddhist dinner. That evening, she developed loose stools without blood associated with generalized abdominal cramping, rated 5/10. Yesterday, she states her symptoms somewhat improved after use Pepto-Bismol. Today she again had an episode of nonbloody loose stools with abdominal cramping. She currently denies pain. She has no other complaints at this time. Related Data Home Medications Medication Instructions Recorded Confirmed losartan 50 mg tablet 50 mg PO DAILY 01/04/21 06/09/22 pravastatin 40 mg tablet 40 mg PO DAILY 01/04/21 06/09/22 hydrochlorothiazide 12.5 mg tablet 12.5 mg PO DAILY 06/09/22 06/09/22 meclizine 25 mg tablet 25 mg PO BID PRN Dizziness 06/09/22 06/09/22 meloxicam 15 mg tablet 15 mg PO DAILY PRN Pain 06/09/22 06/09/22 Allergies Allergy/AdvReac Type Severity Reaction Status Date / Time Penicillins Allergy Anaphylaxis Verified 05/21/23 11:23 Review of Systems Review of Systems: CONSTITUTIONAL: Denies fever, chills, or sweats. CARDIOVASCULAR: Denies chest pain, palpitations, or edema. RESPIRATORY: Denies cough or dyspnea. GASTROINTESTINAL: Cramping abdominal pain, loose nonbloody stools Denies nausea, vomiting GENITOURINARY: Denies dysuria or hematuria. SKIN: Denies rash or itching. MUSCULOSKELETAL: Denies back pain, joint pain, or myalgia. NEUROLOGIC: Denies headache, numbness, dizziness, or weakness. PSYCHIATRIC: Denies anxiety or depression. PENDING SALE TO [facility] Past Medical History Medical History Bradycardia Evaluated by a air cargo specialist in [place]. Dyslipidemia Hypertension Surgical History Surgical History History of partial thyroidectomy Removal of a benign mass. History of tubal ligation Family History Family History Mother Cerebrovascular accident Sibling Cerebrovascular accident Sibling Heart attack Father Alzheimer's dementia Social History Social History Social History: Surrogate medical decision maker: Jabier Charles (spouse). Code status: Full code. Smoking packs per day: 0.5 Smoking cigarettes per day: 10.0 Years smoked: 40 Smoking pack-years: 20.00 Smoking status: Former smoker Tobacco type: cigarettes Alcohol intake: never Drinks per week: 1 Substance use: never Lack of Transportation: No Lack of Food: Never True Current Housing: I Have Housing Concerned About Future Housing: No Difficulty Paying Gas/Electric Bills: No Difficulty Paying for Meds: No Currently Unemployed: No Education: Decline to Answer Difficulty w/ Childcare or Family Care: No Additional living arrangements comments: Lives with spouse in [place]. 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 Spiritual care concerns: No Exam Narrative: GENERAL: Well-developed, well-nourished, and in no acute distress. HEAD: Normocephalic, atraumatic. EYES: PERRLA and EOMI. ENT: Mucous membranes moist. Oropharynx without tonsillar hypertrophy exudate or other lesions. CHEST: Clear to auscultation. No respiratory distress. No wheezes rales or rhonchi HEART: Regular rate and rhythm. No murmur heard. Normal peripheral pulses. ABDOMEN: Soft, nontender, nondistended, normal active bowel sounds. EXTREMITIES: Normal range of motion. No edema. SKIN: Warm, dry, no rash. NEURO: Alert and oriented x3. No focal de
[2023-05-21 12:43] LABS: Basophils Percent Auto 0.4 % (0.2-1.2); Eosinophils Absolute Auto 0.3 K/mm3 (0-0.3); Hematocrit 38.5 % (37.0-47.0); Hemoglobin 12.1 g/dL (12.0-15.0); Lymphocytes Absolute Auto 1.85 K/mm3 (0.9-3.2); Lymphocytes Percent Auto 37.3 % (18.3-44.2); Mean Corpuscular HGB Conc 31.4 g/dl (32-36); Mean Corpuscular Hemoglobin 26.9 pg (26-34); Mean Corpuscular Volume 85.7 fl (80-100); Mean Platelet Volume 9.5 fl (7.4-10.4); Monocytes Absolute Auto 0.3 K/mm3 (0.1-0.6); Monocytes Percent Auto 5.8 % (2.6-8.5); Neutrophils Absolute Auto 2.6 K/mm3 (1.3-6.7); Neutrophils Percent Auto 51.5 % (45.5-73.1); Platelet Count Result 275 k/mm3 (150-375); Red Blood Count 4.49 M/mm3 (4.2-5.4); Red Cell Distribution Width 14.3 % (11.5-14.5)
[2023-05-21 13:09] LABS: Alanine Aminotransferase 22 U/L (6-35); Albumin Level 4.3 g/dL (3.5-5.1); Alkaline Phosphatase 101 U/L (38-126); Anion Gap 6 mmol/L (8-16); Aspartate Amino Transferase 35 U/L (14-36); Bilirubin,Total 0.7 mg/dL (0.2-1.3); Blood Urea Nitrogen 16 mg/dL (7-17); Calcium 9.6 mg/dL (8.4-10.2); Carbon Dioxide 30 mmol/L (22-30); Chloride 105 mmol/L (98-107); Estimated CRCL calculation 48 ml/min; Estimated Glomerular Filt Rate 55; Glucose 92 mg/dL (65-110); Potassium 3.2 mmol/L (3.4-5.0); Sodium 141 mmol/L (137-145)
[2023-05-21] MEDS: SODIUM CHLORIDE 0.9% IV 1,000 ML 999 ML IV CONT (13:26)
[2023-05-21 14:14] VITALS: BP 119/77; PULSE 57; RESP 13; O2SAT 99
== END 2023-05-21 14:20 | disposition home or self-care (01) ==
PROVIDERS: Emergency Provider Preventive Medicine Aerospace Medicine; PCP Internal Medicine Infectious Disease
DX: A05.9 Bacterial foodborne intoxication, unspecified (principal); R19.7 Diarrhea, unspecified; I10 Essential (primary) hypertension; E78.5 Hyperlipidemia, unspecified; E89.0 Postprocedural hypothyroidism; Z86.73 Personal history of transient ischemic attack (TIA), and cerebral infarction without residual deficits; Z87.891 Personal history of nicotine dependence
CPT/HCPCS: 36415; 80053; 85025; 96360; 99283; J7030

== ENCOUNTER 2024-11-24 19:50 | Emergency (ER) | payer BC, OTHER, SELFPAY ==
--- OUTSIDE RECORDS SUMMARY | 2011-03-06 06:00 | XMS_ITS | Continuity of Care Document ---
Author Organization [facility] Address [address] [place] [address] Phone Care Team Providers Care Mold Yarn Supervisor Name Role Phone Kg Menezes DDS Unavailable Unavailable Medications Medication Instructions Dosage Effective Dates (start - stop) Status Comments clindamycin 150 mg Cap take 1 capsule (150MG) by oral route every 6 hours Until Gone 150 MG - No Longer Active Tylenol-Codeine #3 300 mg-30 mg Tab take 1 tablet by oral route every 6 hours as needed - No Longer Active Procedures Procedure Date Limit oral eval problem focused 011 Periapical first film Advance Directives Directive Yes / No Effective Date File Name No Information Encounters Encounter Description Practice Location Reason(s) For Visit Diagnoses Date Provider Providers Copied on Encounter [facility] , [address], [place], [place], [address], [place] tel:[phone] [facility] Dental examination Riri Saul. [address], [place], [place], [address], [place]. tel:[phone] Family History Family Member Type Diagnosis Age At Onset No Information Payers Payer name Insurance type Covered green party ID Authoriza tion(s) No Information Social History Type Description Quantity Date Captured Comments Sex Female Smoking Status No Information Chief Complaint And Reason For Visit No Information Reason For Referral Reason For Referral No Information History Of Present Illness Encounter Date Complaint History Of Prese nt Illness No Information Functional Status Date Functional Assessmen t No Information Instructions Date Instruction Additional Infor mation No Information Assessments Type Assessment Date No Information Patient Care Teams Name Effective Dates (start - stop) Status Members No Information
--- OUTSIDE RECORDS SUMMARY | 2011-03-06 06:00 | XMS_ITS | Continuity of Care Document ---
Author Organization [facility] Address [address] [place] [address] Phone Care Team Providers Care Charity Fundraiser Name Role Phone Kg Menezes DDS Unavailable [...] Diagnoses Date Provider Providers Copied on Encounter [facility] , [address], [place], [place], [id number], [place] tel:[phone] [facility] Dental examination Riri Saul. [address], [place], [place], [address], [place]. tel:[phone] Family History Family Member Type Diagnosis Age At Onset No Information Payers Payer name Insurance type Covered constitution party ID Authoriza tion(s) No Information Social [...]
--- OUTSIDE RECORDS SUMMARY | 2024-02-07 11:15 | XMS_ITS ---
Author Organization [facility] Address [address] [place] [address] Care Team Providers Care Embedded Software Manager Name Role Phone Angel Joel Unavailable [phone] Medications Medication SIG (Take, Route, Frequency, Duration) Notes Start Date End Date Status Ergocalciferol 1.25 MG (87513 UT) 1 capsule Orally Once a week; Duration: 90 day(s) 07/24/2023 04/18/2024 Active Calcitriol 0.25 MCG 1 capsule Orally Onc e a day; Duration: 90 day(s) 07/24/2023 04/18/2024 Active Lasix 20 MG 1 tablet Orally Once a day; Duration: 90 day(s) 08/16/2023 Active amLODIPine Besylate 10 MG 1 tablet Orall y Once a day; Duration: 90 10/30/2023 Active Encounters Encounter Location Date Provider Diagnosis [place] [facility] [address] [facility] 15 [place] [address] 02/07/2024 Joel Ortiz Chronic kidney disea se, stage 3 unspecified N18.30 ; Type 2 diabetes mellitus with hyperglycemia E11.65 ; Essential (primary) hypertension I10 ; Hyperlipidemia, unspecified E78.5 ; Chronic kidney disease, stage 3a N18.31 ; Type 2 diabetes mellitus with diabetic chronic kidney disease E11.22 and Renal osteodystrophy N25.0 Assessments Encounter Date Diagnosis (ICD Code) Assessment Notes Treatment Notes Treatment Clinical Notes Section Notes 02/07/2024 Chronic kidney disease, stage 3 unspecified (ICD-10 - N18.30) 02/07/2024 Type 2 diabetes mellitus with hyperglycemia (ICD-10 - E11.65) 02/07/2024 Essential (primary) hypertension (ICD-10 - I10) 02/07/2024 Hyperlipidemia, unspecified (ICD-10 - E78.5) 02/07/2024 Chronic kidney disease, stage 3a (ICD-10 - N18.31) 02/07/2024 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 - E11.22) 02/07/2024 Renal osteodystrophy (ICD-10 - N25.0) Plan Of Treatment Next Appt Details Provider Name:Joel Ortiz , 12/11/2024 01:00:00 PM, 2043 [facility], [address], [place], [address], Progress Notes * MAGYCathy STATONDOB:1960 (64 yo F)Acc No.[id number]:02/07/2024 Progress Notes Patient: Lroa ZUNIGAWER Cathy Provider: Jordan VASQUEZ MD, F.A.C.P, F.A.S.N. :1960 A ge:63 Y S ex:Female Date:02/07/2024 Address:[address] [place] [address] Subjective: * Chief Complaints: * * Medical History: * Medications: T aking Ergocalciferol 1.25 MG (54543 UT) Capsule 1 capsule Orally Once a week , stop date 04/18/2024, Taking Calcitriol 0.25 MCG Capsule 1 capsule Orally Once a day , stop date 04/18/2024, Taking Lasix 20 MG Tablet 1 tablet Orally Once a day , Taking amLODIPine Besylate 10 MG Tablet 1 tablet Orally Once a day Objective: * Vitals: Assessment: * Assessment: 1. C hronic kidney disease, stage 3 unspecified - N18.30 (Primary) 2 . T ype 2 diabetes mellitus with hyperglycemia - E11.65 3 . E ssential (primary) hypertension - I10 4 . H yperlipidemia, unspecified - E78.5 5 . C hronic kidney disease, stage 3a - N18.31 6 . T ype 2 diabetes mellitus with diabetic chronic kidney disease - E11.22 7 . R enal osteodystrophy - N25.0 ? Plan: * Treatment: * Billing Information: * Visit Code: 14963 Office Visit, Est Pt., Level 4. * Procedure Codes: * Electronic signature of Tawnya Ortiz MD on 11/24/2024 at 07:53 PM CDT Sign off status: Pending * Provider: Jordan VASQUEZ MD, F.A.C.P, F.A.S.N. Date: 1 04/08/2023 Generated for Printing/Faxing/eTransmitting on: 0 11/24/2024 07:53 PM CDT
--- OUTSIDE RECORDS SUMMARY | 2024-04-10 09:30 | XMS_ITS ---
Author Organization [facility] Address [address] [place] [address] Care Team Providers Care Camper Assembler Name Role Phone Angel Joel Unavailable [phone] Medications Medication SIG (Take, Route, Frequency, Duration) Notes Start Date End Date Status Lasix 20 MG 1 tablet Orally Once a day; Duration: 90 day(s) 08/16/2023 Active amLODIPine Besylate 10 MG 1 tablet Orall y Once a day; Duration: 90 10/30/2023 Active Calcitriol 0.25 MCG TAKE 1 CAPSULE BY MO UTH DAILY; Duration: 90 Active Ergocalciferol 1.25 MG (18884 UT) 1 capsule Orally Once a week; Duration: 90 day(s) 07/24/2023 04/18/2024 Active Problems Problem Type SNOMED Code ICD Code Onset Dates Problem Status W/U Status Risk Notes Problem Bilateral small kidney (68313782) Small kidney, bilateral (N27.1) Active confirmed Problem Sarcoidosis of lung (23955097) Sarcoidosis of lung (D86.0) Active confirmed Encounters Encounter Location Date Provider Diagnosis [place] [facility] 20[address] [facility] 15 [place] [address] 04/10/2024 Joel Ortiz Chronic kidney disease, stage 3 unspecified N18.30 ; Type 2 diabetes mellitus with hyperglycemia E11.65 ; Small kidney, bilateral N27.1 ; Hyperuricemia without signs of inflammatory arthritis and tophaceous disease E79.0 and Sarcoidosis of lung D86.0 Assessments Encounter Date Diagnosis (ICD Code) Assessment Notes Treatment Notes Treatment Clinical Notes Section Notes 04/10/2024 Chronic kidney disease, stage 3 unspecified (ICD-10 - N18.30) 04/10/2024 Type 2 diabetes mellitus with hyperglycemia (ICD-10 - E11.65) 04/10/2024 Small kidney, bilateral (ICD-10 - N27.1) 04/10/2024 Hyperuricemia without signs of inflammatory arthritis and tophaceous disease (ICD-10 - E79.0) 04/10/2024 Sarcoidosis of lung (ICD-10 - D86.0) Plan Of Treatment Next Appt Details Provider Name:Joel Ortiz , 12/11/2024 01:00:00 PM, [address]43 [facility], [address], [place], [address], Progress Notes * Adrianna CARRILLOsosaDOB:1960 (64 yo F)Acc No.[id number]:04/10/2024 Progress Notes Patient: Adrianna CAINita Provider: Jordan VASQUEZ MD, F.Patricio.C.P, F.A.S.N. :1960 A ge:63 Y S ex:Female Date:04/10/2024 Address:[address] [address] Subjective: * Chief Complaints: * * Medical History: * Medications: T aking Ergocalciferol 1.25 MG (36189 UT) Capsule 1 capsule Orally Once a week , stop date 04/18/2024, Taking Lasix 20 MG Tablet 1 tablet Orally Once a day , Taking amLODIPine Besylate 10 MG Tablet 1 tablet Orally Once a day , Taking Calcitriol 0.25 MCG Capsule TAKE 1 CAPSULE BY MOUTH DAILY Objective: * Vitals: Assessment: * Assessment: 1. C hronic kidney disease, stage 3 unspecified - N18.30 (Primary) 2 . T ype 2 diabetes mellitus with hyperglycemia - E11.65 3 . S mall kidney, bilateral - N27.1 4 . H yperuricemia without signs of inflammatory arthritis and tophaceous disease - E79.0 5 . S arcoidosis of lung - D86.0 Plan: * Treatment: * Billing Information: * Visit Code: 48180 Office Visit, Est Pt., Level 4. * Procedure Codes: * Electronic signature of Tawnya Ortiz MD on 11/24/2024 at 07:53 PM CDT Sign off status: Pending * Provider: Jordan VASQUEZ MD, F.Patricio.C.P, F.A.S.N. Date: 0 04/10/2024 Generated for Printing/Faxing/eTransmitting on: 0 11/24/2024 07:53 PM CDT
--- OUTSIDE RECORDS SUMMARY | 2024-05-08 09:30 | XMS_ITS ---
Author Organization [facility] Address [address] [place] [address] Care Team Providers Care Corporate Driver Name Role Phone Angel Joel Unavailable [phone] Encounters Encounter Location Date Provider Diagnosis [place] [facility] [address] [facility] 15 [place] [address] 05/08/2024 Joel Ortiz Chronic kidney disea se, stage 3a N18.31 ; Type 2 diabetes mellitus with hyperglycemia E11.65 ; Essential (primary) hypertension I10 ; Hyperlipidemia, unspecified E78.5 ; Renal osteodystrophy N25.0 ; Small kidney, bilateral N27.1 and Sarcoidosis of lung D86.0 Assessments Encounter Date Diagnosis (ICD Code) Assessment Notes Treatment Notes Treatment Clinical Notes Section Notes 05/08/2024 Chronic kidney disease, stage 3a (ICD-10 - N18.31) 05/08/2024 Type 2 diabetes mellitus with hyperglycemia (ICD-10 - E11.65) 05/08/2024 Essential (primary) hypertension (ICD-10 - I10) 05/08/2024 Hyperlipidemia, unspecified (ICD-10 - E78.5) 05/08/2024 Renal osteodystrophy (ICD-10 - N25.0) 05/08/2024 Small kidney, bilateral (ICD-10 - N27.1) 05/08/2024 Sarcoidosis of lung (ICD-10 - D86.0) Plan Of Treatment Next Appt Details Provider Name:Joel Ortiz , 12/11/2024 01:00:00 PM, 2043 [facility], [facility] 15, [place], [address], Progress Notes * Cathy CARRILLODOB:1960 (64 yo F)Acc No.[id number]:05/08/2024 Progress Notes Patient: Catyh CAIN Provider: Jordan VASQUEZ MD, Luis Carlos.ManishP, F.A.S.N. :1960 A ge:63 Y S ex:Female Date:05/08/2024 Address:[address] [place] [address] Subjective: * Chief Complaints: * * Medical History: Objective: * Vitals: Assessment: * Assessment: 1. C hronic kidney disease, stage 3a - N18.31 (Primary) 2 . T ype 2 diabetes mellitus with hyperglycemia - E11.65 3 . E ssential (primary) hypertension - I10 4 . H yperlipidemia, unspecified - E78.5 5 . R enal osteodystrophy - N25.0 6 . S mall kidney, bilateral - N27.1 7 . S arcoidosis of lung - D86.0 Plan: * Treatment: * Billing Information: * Visit Code: 68914 Office Visit, Est Pt., Level 4. * Procedure Codes: * Electronic signature of Tawnya Ortiz MD on 11/24/2024 at 07:53 PM CDT Sign off status: Pending * Provider: Jordan VASQUEZ MD, Luis Carlos.Patricio.Angeles.P, F.A.S.N. Date: 05/08/2024 Generated for Printing/Faxing/eTransmitting on: 0 11/24/2024 07:53 PM CDT
--- OUTSIDE RECORDS SUMMARY | 2024-07-03 09:15 | XMS_ITS ---
Author Organization [facility] Address [address] [place] [address] Care Team Providers Care Shoe Reconditioner Name Role Phone Ortiz Joel Unavailable [phone] Encounters Encounter Location Date Provider Diagnosis [facility] [place] [facility] [address] [place] [address] 07/03/2024 Joel Ortiz Chronic kidney disea se, stage 3a N18.31 ; Type 2 diabetes mellitus with hyperglycemia E11.65 ; Essential (primary) hypertension I10 ; Hyperlipidemia, unspecified E78.5 ; Renal osteodystrophy N25.0 ; Small kidney, bilateral N27.1 and Sarcoidosis of lung D86.0 Assessments Encounter Date Diagnosis (ICD Code) Assessment Notes Treatment Notes Treatment Clinical Notes Section Notes 07/03/2024 Chronic kidney disease, stage 3a (ICD-10 - N18.31) 07/03/2024 Type 2 diabetes mellitus with hyperglycemia (ICD-10 - E11.65) 07/03/2024 Essential (primary) hypertension (ICD-10 - I10) 07/03/2024 Hyperlipidemia, unspecified (ICD-10 - E78.5) 07/03/2024 Renal osteodystrophy (ICD-10 - N25.0) 07/03/2024 Small kidney, bilateral (ICD-10 - N27.1) 07/03/2024 Sarcoidosis of lung (ICD-10 - D86.0) Plan Of Treatment Next Appt Details Provider Name:Jeol Ortiz , 12/11/2024 01:00:00 PM, 2043 [facility] 15, [place], [address], Progress Notes * Cathy CARRILLODOB:1960 (64 yo F)Acc No.[id number]:07/03/2024 Progress Notes Patient: Lora Cathy VALDERRAMA Provider: Jordan VASQUEZ MD, Luis Carlos.Patricio.Angeles.P, F.A.S.N. :1960 A ge:63 Y S ex:Female Date:07/03/2024 Address:[address] [place] [address] Subjective: * Chief Complaints: * * Medical [...] Treatment: * Billing Information: * Visit Code: 56384 Office Visit, Est Pt., Level 4. * Procedure Codes: * Electronic signature of Tawnya Ortiz MD on 11/24/2024 at 07:53 PM CDT Sign off status: Pending * Provider: Jordan VASQUEZ MD, Luis Carlos.Patricio.Angeles.P, F.A.S.N. Date: 07/03/2024 Generated for Printing/Faxing/eTransmitting on: 0 11/24/2024 07:53 PM CDT
--- OUTSIDE RECORDS SUMMARY | 2024-09-11 08:45 | XMS_ITS ---
Author Organization [facility] Address [address] [place] [address] Care Team Providers Care Tractor Engine Assembler Name Role Phone Ortiz Joel Unavailable [phone] Problems Problem Type SNOMED Code ICD Code Onset Dates Problem Status W/U Status Risk Notes Problem Metabolic disorder, unspecified (E88.9) Active confirmed Encounters Encounter Location Date Provider Diagnosis [facility] 2043 [facility] 15 [place] [address] 09/11/2024 Joel Ortiz Chronic kidney disea se, stage 3a N18.31 ; Type 2 diabetes mellitus with hyperglycemia E11.65 ; Essential (primary) hypertension I10 ; Hyperlipidemia, unspecified E78.5 ; Renal osteodystrophy N25.0 ; Small kidney, bilateral N27.1 ; Sarcoidosis of lung D86.0 and Metabolic disorder, unspecified E88.9 Assessments Encounter Date Diagnosis (ICD Code) Assessment Notes Treatment Notes Treatment Clinical Notes Section Notes 09/11/2024 Chronic kidney disease, stage 3a (ICD-10 - N18.31) 09/11/2024 Type 2 diabetes mellitus with hyperglycemia (ICD-10 - E11.65) 09/11/2024 Essential (primary) hypertension (ICD-10 - I10) 09/11/2024 Hyperlipidemia, unspecified (ICD-10 - E78.5) 09/11/2024 Renal osteodystrophy (ICD-10 - N25.0) 09/11/2024 Small kidney, bilateral (ICD-10 - N27.1) 09/11/2024 Sarcoidosis of lung (ICD-10 - D86.0) 09/11/2024 Metabolic disorder, unspecified (ICD-10 - E88.9) Plan Of Treatment Next Appt Details Provider Name:Joel Ortiz , 12/11/2024 01:00:00 PM, 2043 [facility], [facility] 15, [place], [address], Progress Notes * Cathy CARRILLODOB:1960 (64 yo F)Acc No.[id number]:09/11/2024 Progress Notes Patient: Cathy CAIN Provider: Jordan VASQUEZ MD, Javier.P, F.A.S.N. :1960 A ge:64 Y S ex:Female Date:09/11/2024 Address:[address] [facility] Subjective: * Chief Complaints: * * Medical [...] . S arcoidosis of lung - D86.0 8 . M etabolic disorder, unspecified - E88.9 ? Plan: * Treatment: * Billing Information: * Visit Code: 93690 Office Visit, Est Pt., Level 4. * Procedure Codes: * Electronic signature of Tawnya Ortiz MD on 11/24/2024 at 07:53 PM CDT Sign off status: Pending * Provider: Jordan VASQUEZ MD, F.A.C.P, F.A.S.N. Date: 09/11/2024 Generated for Printing/Faxing/eTransmitting on: 11/24/2024 07:53 PM CDT
--- NOTE | ~2024-11-24 | CT_ITS ---
EXAM: CT abdomen pelvis wo con - 11/24/2024 22:24 CDT History: 64 years old Female with R flank pain TECHNIQUE: Multidetector CT of the abdomen and pelvis without contrast. Coronal and sagittal reformats were also provided for review. Automatic exposure control was used for this study. COMPARISON: None Available. FINDINGS: Evaluation of bowel, vasculature, solid and hollow viscera is limited in the absence of oral and IV contrast. VISUALIZED CHEST: Visualized lungs are clear. ABDOMEN and PELVIS: LIVER: Within normal limits. GALLBLADDER: No calcified gallstones. BILE DUCTS: No dilatation. SPLEEN: Within normal limits. PANCREAS: Within normal limits. ADRENAL GLANDS: Within normal limits. KIDNEYS and URETERS: No hydronephrosis or hydroureter. Left nonobstructive nephrolithiasis. URINARY BLADDER: Mild diffuse thickening of the urinary bladder wall. STOMACH and BOWEL: No abnormal bowel wall thickening. No obstruction. REPRODUCTIVE ORGANS: Within normal limits. MESENTERY/PERITONEAL CAVITY: No free fluid or pneumoperitoneum. LYMPH NODES: No abdominal or pelvic lymphadenopathy. ABDOMINAL WALL: Within normal limits. VASCULATURE: Within normal limits. MUSCULOSKELETAL: Multilevel degenerative changes of the spine. IMPRESSION: 1. Diffuse wall thickening of the urinary bladder. Correlate with urinalysis to rule out possible acute cystitis. 2. Left nonobstructive nephrolithiasis. Reviewed, dictated and finalized at location N. IMPRESSION: 1. Diffuse wall thickening of the urinary bladder. Correlate with urinalysis t o rule out possible acute cystitis. 2. Left nonobstructive nephrolithiasis.
--- NOTE | 2024-11-24 19:53 | ECG_ITS ---
Test Date: 2024-11-24 20:07:26 Measurements Intervals [place] Rate: 57 P: 31 DE: 180 QRS: -5 QRSD: 89 T: 55 QT: 422 QTc: 414 Interpretive Statements SINUS BRADYCARDIA VOLTAGE CRITERIA FOR LVH [MEETS CRITERIA IN ONE OF: R(aVL), S(V1), R(V5), R(V5/V6)+S(V1)] POSSIBLE ANTERIOR MYOCARDIAL INFARCTION , PROBABLY OLD [30 ms Q WAVE IN V3/V4, OR R < 0.2 mV IN V4] ABNORMAL ECG No previous ECG available for comparison Electronically Signed On 11-25-2024 11:09:21 CDT by Frank Reina M.D.
--- OUTSIDE RECORDS SUMMARY | 2024-11-24 19:53 | XMS_ITS | Patient Health Record ---
Author Organization [facility] Address [address] [place] [address] Care Team Providers Care Pulmonary Specialist Name Role Phone Joel Ortiz Unavailable [phone] Reason For Referral No Information Medications Medication SIG (Take, Route, Frequency, Duration) Notes Start Date End Date Status Lasix 20 MG 1 tablet Orally Once a day; Duration: 90 day(s) 08/16/2023 Active amLODIPine Besylate 10 MG 1 tablet Orall y Once a day; Duration: 90 10/30/2023 Active Vitamin D (Ergocalciferol) 1.25 MG (21050 UT) TAKE 1 CAPSULE BY MOUTH 1 TIME A WEEK; Duration: 91 Active Calcitriol 0.25 MCG 1 capsule Orally Onc e a day; Duration: 90 days Active Problems Problem Type SNOMED Code ICD Code Onset Dates Problem Status W/U Status Risk Notes Problem Sarcoidosis of lung (87297088) Sarcoidosis of lung (D86.0) Active confirmed Problem Hyperglycemia due to type 2 diabetes mellitus (093651210392711) Type 2 diabetes mellitus with hyperglycemia (E11.65) Active confirmed Problem Hyperlipidemia (32733705) Hyperlipidemia, unspecified (E78.5) Active confirmed Problem Metabolic disorder (50420013) Metabolic disorder, unspecified (E88.9) Active confirmed Problem Essential hypertension (54967479) Essential (primary) hypertension (I10) Active confirmed Problem Renal osteodystrophy (69948957) Renal osteodystrophy (N25.0) Active confirmed Problem Bilateral small kidney (30621510) Small kidney, bilateral (N27.1) Active confirmed Problem Chronic kidney disease stage 3A (disorder) (169173066) Chronic kidney disease, stage 3a (N18.31) Active confirmed Encounters Encounter Location Date Provider Diagnosis [place] [facility] 2043 [facility] 15 [place] [address] 12/04/2023 Joel Ortiz Chronic kidney disea se, stage 3a N18.31 ; Type 2 diabetes mellitus with diabetic chronic kidney disease E11.22 ; Essential (primary) hypertension I10 and Renal osteodystrophy N25.0 [place] [facility] 2043 [place] [address] 02/07/2024 Joel Singh Chronic kidney disea se, stage 3 unspecified N18.30 ; Type 2 diabetes mellitus with hyperglycemia E11.65 ; Essential (primary) hypertension I10 ; Hyperlipidemia, unspecified E78.5 ; Chronic kidney disease, stage 3a N18.31 ; Type 2 diabetes mellitus with diabetic chronic kidney disease E11.22 and Renal osteodystrophy N25.0 [place] [facility] [address] [place] [address] 04/10/2024 Joel Ortiz Chronic kidney disea se, stage 3 unspecified N18.30 ; Type 2 diabetes mellitus with hyperglycemia E11.65 ; Small kidney, bilateral N27.1 ; Hyperuricemia without signs of inflammatory arthritis and tophaceous disease E79.0 and Sarcoidosis of lung D86.0 [place] [facility] [address] [place] [address] 05/08/2024 Joel Ortiz Chronic kidney disea se, stage 3a N18.31 ; Type 2 diabetes mellitus with hyperglycemia E11.65 ; Essential (primary) hypertension I10 ; Hyperlipidemia, unspecified E78.5 ; Renal osteodystrophy N25.0 ; Small kidney, bilateral N27.1 and Sarcoidosis of lung D86.0 [facility] [place] [facility] [address] [place] [address] 07/03/2024 Joel Ortiz Chronic kidney disea se, stage 3a N18.31 ; Type 2 diabetes mellitus with hyperglycemia E11.65 ; Essential (primary) hypertension I10 ; Hyperlipidemia, unspecified E78.5 ; Renal osteodystrophy N25.0 ; Small kidney, bilateral N27.1 and Sarcoidosis of lung D86.0 [place] [facility] [address] [place] [address] 09/11/2024 Joel Ortiz Chronic kidney disea se, stage 3a N18.31 ; Type 2 diabetes mellitus with hyperglycemia E11.65 ; Essential (primary) hypertension I10 ; Hyperlipidemia, unspecified E78.5 ; Renal osteodystrophy N25.0 ; Small kidney, bilateral N27.1 ; Sarcoidosis of lung D86.0 and Metabolic disorder, unspecified E88.9 [place] [facility] [address] [address] 05/08/2024 Joel Ortiz [place] [facility] [address] [address] 10/19/2024 Joel Ortiz Assessments Encounter Date Diagnosis (ICD Code) Assessment Notes Treatment Notes Treatment Clinical Notes Section Notes 12/04/2023 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 - E11.22) 12/04/2023 Chronic kidney disease, stage 3a (ICD-10 - N18.31) 02/07/2024 Chronic kidney disease, stage 3 unspecified (ICD-10 - N18.30) 04/10/2024 Type 2 diabetes mellitus with hyperglycemia (ICD-10 - E11.65) 04/10/2024 Chronic kidney disease, stage 3 unspecified (ICD-10 - N18.30) 05/08/2024 Chronic kidney disease, stage 3a (ICD-10 - N18.31) 07/03/2024 Chronic kidney disease, stage 3a (ICD-10 - N18.31) 09/11/2024 Type 2 diabetes mellitus with hyperglycemia (ICD-10 - E11.65) 09/11/2024 Chronic kidney disease, stage 3a (ICD-10 - N18.31) 09/11/2024 Essential (primary) hypertension (ICD-10 - I10) 07/03/2024 Type 2 diabetes mellitus with hyperglycemia (ICD-10 - E11.65) 05/08/2024 Type 2 diabetes mellitus with hyperglycemia (ICD-10 - E11.65) 04/10/2024 Small kidney, bilateral (ICD-10 - N27.1) 02/07/2024 Type 2 diabetes mellitus with hyperglycemia (ICD-10 - E11.65) 12/04/2023 Essential (primary) hypertension (ICD-10 - I10) 12/04/2023 Renal osteodystrophy (ICD-10 - N25.0) 04/10/2024 Hyperuricemia without signs of inflammatory arthritis and tophaceous disease (ICD-10 - E79.0) 02/07/2024 Essential (primary) hypertension (ICD-10 - I10) 05/08/2024 Essential (primary) hypertension (ICD-10 - I10) 07/03/2024 Essential (primary) hypertension (ICD-10 - I10) 09/11/2024 Hyperlipidemia, unspecified (ICD-10 - E78.5) 07/03/2024 Hyperlipidemia, unspecified (ICD-10 - E78.5) 09/11/2024 Renal osteodystrophy (ICD-10 - N25.0) 05/08/2024 Hyperlipidemia, unspecified (ICD-10 - E78.5) 04/10/2024 Sarcoidosis of lung (ICD-10 - D86.0) 02/07/2024 Hyperlipidemia, unspecified (ICD-10 - E78.5) 02/07/2024 Chronic kidney disease, stage 3a (ICD-10 - N18.31) 05/08/2024 Renal osteodystrophy (ICD-10 - N25.0) 09/11/2024 Small kidney, bilateral (ICD-10 - N27.1) 07/03/2024 Renal osteodystrophy (ICD-10 - N25.0) 07/03/2024 Small kidney, bilateral (ICD-10 - N27.1) 09/11/2024 Sarcoidosis of lung (ICD-10 - D86.0) 05/08/2024 Small kidney, bilateral (ICD-10 - N27.1) 02/07/2024 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
--- OUTSIDE RECORDS SUMMARY | 2024-11-24 19:53 | XMS_ITS | Clinical Summary ---
Author Organization [facility] [address] Address [address] [place] [address] Care Team Providers Care Center Medical Specialist Name Role Phone Tone Conn MD Primary Care Provider Nicole Vivar MD Unavailable [phone] Allergies Active Allergy Reactions Criticality Noted Date Comments Penicillins Anaphylaxis High 09/15/2010 Medications losartan (COZAAR) 50 mg tablet Take 1 tablet (50 mg total) by mouth every morning 2 Active meclizine (ANTIVERT) 25 mg tablet Take 1 tablet (25 mg total) by mouth 2 (two) times a day as needed for dizziness 0 Active aspirin 81 mg enteric coated tablet Take 1 tablet (81 mg total) by mouth every morning Active hydroCHLOROthia zide (HYDRODIURIL) 25 mg tablet Take 1 tablet (25 mg total) by mouth every morning Active rosuvastatin (CRESTOR) 10 mg tablet Take 1 tablet (10 mg total) by mouth every other day 0 Active albuterol HFA (Ventolin HFA) 90 mcg/actuation inhalerIndicati ons:Chronic cough Inhale 2 puffs every 4 (four) hours as needed for wheezing or shortness of breath 18 g 5 3 Active nystatin cream Apply 1 Application topically 2 (two) times a day as needed Active triamcinolone (KENALOG) 0.1 % cream Apply 1 g topically 2 (two) times a day as needed for rash Active oxyCODONE (ROXICODONE) 5 mg immediate release tabletIndicatio ns:Pain Take 1 tablet (5 mg total) by mouth every 4 (four) hours as needed for pain 30 tablet 3 Active Additional Information Patient not taking.Reported on 01/22/2023 acetaminophen 500 mg capsuleIndicati ons:Pain Take 2 capsules (1,000 mg total) by mouth every 6 (six) hours as needed for pain 3 Active senna (SENOKOT) 8.6 mg tabletIndicatio ns:constipation Take 1 tablet by mouth 2 (two) times a day for 5 days 10 tablet 3 Active cyclobenzaprine (FLEXERIL) 10 mg tablet 3 Active docusate sodium (COLACE) 100 mg capsule Take by mouth daily as needed 3 Active potassium chloride ER 20 mEq CR tablet Take 1 tablet (20 mEq total) by mouth daily 3 Active Active Problems Patient Care Coordination No te Formatting of this note migh t be different from the original. Referring provider: Dr. Juan Wells Ms. Olya Grace is a 62-year-old a lung nodule and lymphadenopathy. Patient initially presented in May with right leg weakness and cramps. She went to the hospital on 06/09/[address] angiogram of the head and neck which noted no acute large vessel infarct. There was a 3.1 cm right suprahilar mass with multiple pulmonary nodules, right hilar lymphadenopathy and mediastinal lymphadenopathy, concerning for carcinoma. She subsequently underwent an MRI which showed an acute left parietal infarct. On 06/10/2022 the patient underwent a chest CT without contrast which noted a right suprahilar masslike consolidation measuring 3.5 x 2.1 cm with associated air bronchograms peripherally. There were multiple bilateral pulmonary nodules measuring up to 5 mm or less. There is mediastinal and right hilar lymphadenopathy which was nonspecific. On 06/12/2022 the patient underwent a CT-guided biopsy of the lung. Final pathology was negative for malignancy. On 07/26/2022 the patient underwent a PET scan which noted a hypermetabolic medial right upper lobe lung nodule and opacity which is nonspecific. There was a hypermetabolic right paratracheal and right hilar lymphadenopathy, characteristic of malignancy. There was mildly prominent FDG avid lymph nodes in the lazaro hepatis, this slightly elevated the possibility of a lymphoproliferative malignancy but is nonspecific. There is mildly FDG avid bilateral axillary and left inguinal lymph nodes which are nonspecific but may be reactive. There are mildly FDG avid subcentimeter right posterior cervical lymph node level 5B which is indeterminate. On 08/17/2022 the patient underwent a bronchoscopy with biopsy of a 4R lymph node. Final pathology showed necrosis, scant lymphoid cells, histiocytes, suggestive of granulomas present. On 09/12/2022 the patient underwent pulmonary function testing which showed an FEV1 of 83% of predicted and a DLCO of 54% of predicted. On 06/11/2022 the patient underwent an echocardiogram which showed moderate concentric left ventricular hypertrophy with hyperdynamic systolic function. There was grade 1 diastolic noncompliance. There was no significant valvular dysfunction. Patient is a former smoker who quit in 2018 and has a 32 pack year smoking history. She is residual right leg weakness and is currently doing physical therapy. Patient presents today for further surgical evaluation. Problem Noted Date Diagnosed Date Unsteady gait 01/24/2023 History of stroke 10/08/2022 Assessment & Plan (10/08/2022 2:57 PM CDT): Hx Date of last CVA: 06/08/2022. - cont ASA post op period HTN (hypertension) 10/08/2022 Assessment & Plan (10/08/2022 2:57 PM CDT): - restart home meds as BP/HR tolerates - monitor Stage 3a chronic kidney disease 10/08/2022 Assessment & Plan (10/08/2022 2:59 PM CDT): POA - appears baseline 1.2-1.4 - monitor - avoid nephrotoxic meds Class 1 obesity in adult 10/08/2022 Assessment & Plan (10/08/2022 3:00 PM CDT): - monitor Mediastinal adenopathy 10/01/2022 Assessment & Plan (10/08/2022 2:56 PM CDT): S/P XI BIOPSY MEDIASTINAL LYMPH NODE - ROBOTIC ASSISTED (Right) - chest tube to suction - meds ordered for pain control - ADAT - PT to see and eval - wean O2 as tolerated Nodule of right lung 08/02/2022 Surgical History Surgery Date Site/Laterality Comments THYROID LOBECTOMY 03/25/2013 - 03/24/2014 Left benign COLONOSCOPY about 2019 LUNG BIOPSY Right 06/12/22 BRONCHOSCOPY 08/17/2022 w/ EBUS VAGINAL DELIVERY x 3 w/ epidural x 2 Medical History Medical History Date Comments Stroke (HCC) 06/08/22 residual mild right leg weakness; going to therapy;walks unassisted Hypertension HLD (hyperlipidemia) Obesity Lung mass right Vertigo Wears glasses Wears dentures Former smoker 1/2 pack for 20 years History of bradycardia per cardi ologist note in CareEverywhere Family History Medical History Relation Name Comments Heart disease Brother 1 Heart disease Brother 2 Lung disease Father Heart disease Maternal Grandmother Hypertension Mother Stroke Mother Diabetes Sister 1 Stroke Sister 2 Anesthesia problems Neg Hx Relation Name Status Comments Brother 1 Brother 2 Alive Father Maternal Grandmother Mother Sister 1 Sister 2 Alive Social History Tobacco Use Types Packs/Day Years Used Date Smoking Tobacco: Former Cigarettes 1 40 1 2017 Passive Smoke Exposure: Past Smokeless Tobacco: Never AUDIT-C Answer Date Recorded Q1: How often do you have a drink containing alcohol? Monthly or less 10/25/2022 Q2: How many drinks containi ng alcohol do you have on a typical day when you are drinking? Patient does not drink Q3: How often do you have si x or more drinks on one occasion? Never 10/25/2022 Personal Safety Answer Date Recorded Have you ever been in or are you currently in a harmful physical or emotional relationship or is someone making you feel afraid or unsafe? 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 Gender Identity Not on file Sexual Orientation Not on file Obstetrics History Last Filed Vital Signs Vital Sign Reading Time Taken Comments Blood Pressure 132/85 04/03/2023 9:34 AM GLAZE SUPERVISOR Pulse 65 04/03/2023 9:34 AM GLAZE SUPERVISOR Temperature 36.2 C (97.2 F) 04/03/2023 9:34 AM GLAZE SUPERVISOR Respiratory Rate 18 04/03/2023 9:34 AM GLAZE SUPERVISOR Oxygen Saturation 96% 04/03/2023 9:34 AM GLAZE SUPERVISOR Inhaled Oxygen Concentration - - Weight 91.2 kg (201 lb) 04/03/2023 9:34 AM GLAZE SUPERVISOR Height 165.1 cm (5' 5) 04/03/2023 9:34 AM GLAZE SUPERVISOR Body Mass Index 33.45 04/03/2023 9:34 AM GLAZE SUPERVISOR Plan of Treatment Health Maintenance Due Date Last Done Comments Cervical Cancer Screening 1960 Colon Cancer Screening-Colonoscopy 1960 Depression Screening 1960 Hepatitis C Screening 1960 DTaP/Tdap/Td Vaccine (1 - Tdap) 07/30/1970 Hepatitis B Screening 07/30/1977 Lung Cancer Screening 07/30/2009 Zoster Vaccine (1 of 2) 07/30/2009 Pneumococcal vaccine 65+ (2 of 2 - PCV) 09/03/2015 09/02/2014 Osteoporosis Screening-Bone Density Scan 12/29/2021 12/30/2019 Fall Risk Assessment 10/10/2023 10/09/2022 Breast Cancer Screening-Mammogram 12/25/2023 12/24/2022, 01/15/2022, 11/29/2020, Additional history exists Well Visit 65+ 07/30/2024 Covid-19 Vaccine (3 - 2024-2 6 season) 2024 07/15/2020, 06/17/2020 Influenza Vaccine (#1) 2024 3, 01/01/2022, 12/28/2020, Additional history exists Insurance [email or web address] Advance Directives For more information, please contact: [phone] * Full Code (Latest Code Status on File) Date Activated Date Inactivated Comments 10/08/2022 2:15 PM 10/09/2022 5:24 PM Care Teams Center Medical Specialist Relationship Specialty Start Date End Date Tone Conn MD [id number] [address] PCP - General Internal Medicine 01/04/21 [place] [id number] [facility] [address] [address] Consulting Physician Cardiovascular Disease 08/06/22
[2024-11-24 20:16] VITALS: BP 121/56; PULSE 76; RESP 18; TEMP 36.6; O2SAT 100
--- NOTE | 2024-11-24 22:11 | ED.ABDPAIN ---
HPI - Abdominal Pain General Chief Complaint: Abdominal Pain Stated Complaint: R side pain Time Seen by Provider: 11/24/24 21:59 History of Present Illness HPI narrative: 64-year-old female with a reported history of dyslipidemia, hypertension, CKD, sarcoidosis presents emergency department for right flank pain for 1 year. Patient states the pain is in her right flank, intermittent and described as sharp. She states the pain is better in certain positions and worsened other positions. She states she mentioned her pain to her allergist/pediatric pulmonologist, Dr. Ortiz, at [place] who reportedly prescribed her 2 pills. She states 1 of the pills was vitamin D in the other pill was a ?little orange pill?. She states today the pain worsened which prompted her to come to the ED. She denies history of kidney stones, dysuria, hematuria, abdominal pain, fever, nausea or vomiting. She states her pain improves when she takes aspirin. She has never required dialysis. Related Data Home Medications ?Medication ?Instructions ?Recorded ?Confirmed ?Last Taken ?Type losartan 50 mg tablet 50 mg PO DAILY 01/04/21 06/09/22 06/09/22 History pravastatin 40 mg tablet 40 mg PO DAILY 01/04/21 06/09/22 06/09/22 History hydrochlorothiazide 12.5 mg tablet 12.5 mg PO DAILY 06/09/22 06/09/22 06/09/22 History meclizine 25 mg tablet 25 mg PO BID PRN Dizziness 06/09/22 06/09/22 Unknown History meloxicam 15 mg tablet 15 mg PO DAILY PRN Pain 06/09/22 06/09/22 06/09/22 History Allergies Allergy/AdvReac Type Severity Reaction Status Date / Time Penicillins Allergy Anaphylaxis Verified 05/21/23 11:23 Review of Systems Review of Systems: All systems reviewed & are unremarkable except as noted in HPI and below PMFSH Past Medical History Medical History Bradycardia 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 Dyslipidemia Hypertension Surgical History Surgical History History of tubal ligation History of partial thyroidectomy Removal of a benign mass. Family History Family History Mother Cerebrovascular accident Sibling Cerebrovascular accident Sibling Heart attack Father Alzheimer's dementia Social History Social History Social History: Surrogate medical decision maker: Jabier Charles (spouse). Code status: Full code. Smoking packs per day: 0.5 Smoking cigarettes per day: 10.0 Years smoked: 40 Smoking pack-years: 20.00 Smoking status: Former smoker Tobacco type: cigarettes Alcohol intake: never Drinks per week: 1 Substance use: never Lack of Transportation: No Lack of Food: Never True Current Housing: I Have Housing Concerned About Future Housing: No Difficulty Paying Gas/Electric Bills: No Difficulty Paying for Meds: No Currently Unemployed: No Education: Decline to Answer Difficulty w/ Childcare or Family Care: No Additional living arrangements comments: Lives with spouse in [place]. 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 Spiritual care concerns: No Exam Narrative: GENERAL: Well-appearing, well-nourished, and in no acute distress. HEAD: Normocephalic, atraumatic. EYES: EOMI. ENT: Nares clear, no rhinorrhea or epistaxis. Mucous membranes moist. NECK: Supple. CHEST: Clear to auscultation. No respiratory distress. HEART: Regular rate and rhythm. No murmur heard. Normal peripheral pulses. ABDOMEN: Soft, nontender, nondistended, normal active bowel sounds. Right point tender flank tenderness at the CVA region with no overlying skin changes, crepitus, step-offs or deformities. No tenderness remainder of back EXTREMITIES: Normal range of motion. No edema. SKIN: Warm, dry, no rash. NEURO: No focal deficits. Alert and oriented x3 Course Vital Signs Vital signs: Vital Signs Temperature 97.9 F 11/24/24 20:16 Pulse Rate 76 11/24/24 20:16 Respiratory Rate 18 11/24/24 20:16 Blood Pressure 121/56 L 11/24/24 20:16 Pulse Oximetry 100 11/24/24 20:16 Oxygen Delivery Room Air 11/24/24 20:16 Temperature 97.9 F 11/24/24 20:16 Pulse Rate 76 11/24/24 20:16 Respiratory Rate 18 11/24/24 20:16 Blood Pressure 121/56 L 11/24/24 20:16 Pulse Oximetry 100 11/24/24 20:16 Oxygen Delivery Room Air 11/24/24 20:16 MDM - Abdominal Pain MDM Narrative Medical decision making narrative: 64-year-old female with history of CKD, hypertension, hyperlipidemia presents emergency department for intermittent right flank pain for the past year. See HPI for further history. Triage vitals are stable. Patient is afebrile and nontoxic appearing. Exam is significant for reproducible point tenderness to the right flank near the CVA region. No overlying skin changes. Abdomen is soft and nontender. CBC shows no leukocytosis or anemia. Chemistries with creatinine of 1.19 which is consistent with patient's baseline. Alk phos mildly elevated to 129 again consistent with patient's baseline. Lipase is normal. UA with 6-10 RBCs, no white blood cells or bacteria, no leuk esterase or nitrates. CT abdomen pelvis shows no obstructing urolithiasis seen. There is left renal nonobstructing stone. CT shows possible cystitis, however this does not correlate with patient's UA. Patient updated on results. Suspect MSK etiology. She was given Tylenol in the ED with improvement. Tylenol, Flexeril and lidocaine patches sent to pharmacy. Advised follow-up with PCP discussed strict ED return precautions. Patient was agreeable with the plan verbalized understanding. Discharged in stable condition. Lab Data 11/24/24 23:28 11/24/24 23:28 Labs: Lab Results 11/24/24 11/24/24 Range/Units 23:28 23:34 WBC 6.5 (4.5-10.0) K/mm3 RBC 4.86 (4.2-5.4) M/mm3 Hgb 12.9 (12.0-15.0) g/dL Hct 41.0 (37.0-47.0) % MCV 84.4 (80-100) fl MCH 26.5 (26-34) pg MCHC 31.5 L (32-36) g/dl RDW 14.6 H (11.5-14.5) % Plt Count 295 (150-375) k/mm3 MPV 8.7 (7.4-10.4) fl Immature Gran % (Auto) 0.3 (0-0.5) % Neut % (Auto) 52.1 (45.5-73.1) % Lymph % (Auto) 40.6 (18.3-44.2) % [place] % (Auto) 3.5 (2.6-8.5) % Eos % (Auto) 2.9 (0-4.4) % Baso % (Auto) 0.6 (0.2-1.2) % Lymph # (Auto) 2.65 (0.9-3.2) K/mm3 [place] # (Auto) 0.2 (0.1-0.6) K/mm3 Eos # (Auto) 0.2 (0-0.3) K/mm3 Baso # (Auto) 0.0 (0.0-0.1) K/mm3 Abs Immat Gran (auto) 0.02 (0.00-0.031) K/mm3 Absolute Neuts (auto) 3.4 (1.3-6.7) K/mm3 Absolute Nucleated RBC 0.000 (0.0-0.012) K/mm3 Nucleated RBC % 0.0 (0.0-0.2) % Sodium 140 (137-145) mmol/L Potassium 3.7 (3.4-5.0) mmol/L Chloride 105 (98-107) mmol/L Carbon Dioxide 24 (22-30) mmol/L Anion Gap 11 (4-12) mmol/L BUN 15 (7-17) mg/dL Creatinine 1.19 H (0.7-1.0) mg/dL Estim Creat Clear Calc 46 ml/min Estimated GFR 46 L (59 - ) Glucose 93 (65-110) mg/dL Calcium 10.2 (8.4-10.2) mg/dL Total Bilirubin 0.5 (0.2-1.3) mg/dL AST 38 H (14-36) U/L ALT 24 (6-35) U/L Alkaline Phosphatase 129 H (38-126) U/L Total Protein 9.0 H (6.3-8.2) g/dL Albumin 4.8 (3.5-5.1) g/dL Lipase 108 (23-300) U/L Urine Color Yellow (Yellow) Urine Appearance Turbid H (Clear) Urine pH 5.0 (5.0-9.0) Ur Specific [place] 1.016 (1.001-1.035) Urine Protein Negative (Negative) mg/dL Urine Glucose (UA) Negative (Negative) mg/dL Urine Ketones Negative (Negative) mg/dL Ur Blood (Man) Trace (Negative) Urine Nitrate Negative (Negative) Urine Bilirubin Negative (Negative) Urine Urobilinogen 0.2 (<2.0) mg/dL Leukocyte Esterase Rfl Negative (Negative) JOHN/UL Urine RBC 6-10 H (0-2) /hpf Urine WBC 0-5 (0-3) /hpf Ur Squamous Epith Cells None seen (Few) /hpf Urine Bacteria None seen /hpf Urine Casts 0-2 Discharge Plan Discharge Clinical Impression: Left nephrolithiasis, Flank pain Patient Disposition: Home Condition: Stable Instructions: Antibiotic Form, Flank Pain (ED) Additional Instructions: You were evaluated in the emergency department for right flank pain. Your found have a stone in her left kidney but this is not causing her symptoms. I suspect your symptoms are due to a muscle strain. Please take the medications as directed and follow-up closely with her primary care provider. Return to the emergency department if you develop new or worsening symptoms, fever or other concerning symptoms. Patient Language: Upper Sorbian Prescriptions: New cyclobenzaprine 5 mg tablet 5 mg PO TID PRN (Reason: muscle spasm) Qty: 14 0RF acetaminophen 500 mg capsule 500 mg PO Q6H PRN (Reason: pain) Qty: 14 0RF lidocaine 5 % adhesive patch,medicated 1 patch topical DAILY Qty: 15 0RF Rx Instructions: leave on most painful area for up to 12 hrs. do not use more than 1 patch in a 24-hour period. No Action losartan 50 mg tablet 50 mg PO DAILY pravastatin 40 mg tablet 40 mg PO DAILY hydrochlorothiazide 12.5 mg tablet 12.5 mg PO DAILY meloxicam 15 mg tablet 15 mg PO DAILY PRN (Reason: Pain) meclizine 25 mg tablet 25 mg PO BID PRN (Reason: Dizziness) atorvastatin 40 mg Tablet 40 mg PO DAILY Qty: 30 0RF aspirin 81 mg Tablet,Delayed Release (Dr/Ec) 81 mg PO QAM Qty: 30 0RF levofloxacin 500 mg tablet 500 mg PO DAILY Qty: 10 0RF dicyclomine 10 mg capsule 10 mg PO TID Qty: 6 0RF Follow-up/Referrals: Fabien,Jj Wayne [Primary Care Provider]
[2024-11-24] MEDS: ACETAMINOPHEN 500 MG TABLET 1000 MG PO (22:16)
--- OUTSIDE RECORDS SUMMARY | 2024-11-24 23:05 | XMS_ITS | Clinical Summary ---
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 Gender Identity Not on file Sexual Orientation Not on file Obstetrics History Last Filed Vital Signs Vital Sign Reading Time Taken Comments Blood Pressure 132/85 04/03/2023 9:34 AM MAINTENANCE APPRENTICE Pulse 65 04/03/2023 9:34 AM MAINTENANCE APPRENTICE Temperature 36.2 C (97.2 F) 04/03/2023 9:34 AM MAINTENANCE APPRENTICE Respiratory Rate 18 04/03/2023 9:34 AM MAINTENANCE APPRENTICE Oxygen Saturation 96% 04/03/2023 9:34 AM MAINTENANCE APPRENTICE Inhaled Oxygen Concentration - - Weight 91.2 kg (201 lb) 04/03/2023 9:34 AM MAINTENANCE APPRENTICE Height 165.1 cm (5' 5) 04/03/2023 9:34 AM MAINTENANCE APPRENTICE Body Mass Index 33.45 04/03/2023 9:34 AM MAINTENANCE APPRENTICE Plan of Treatment Health Maintenance Due Date [...] 3, 01/01/2022, 12/28/2020, Additional history exists Insurance [facility] Advance Directives For more information, please contact: [phone] * Full Code (Latest Code Status on File) Date Activated Date Inactivated Comments 10/08/2022 2:15 PM 10/09/2022 5:24 PM Care Teams Abattoir Supervisor Relationship Specialty Start Date End Date Tone Conn MD [address] [address] PCP - General Internal Medicine 01/04/21 [place] [id number] [facility] [address], [place] [address] Consulting Physician Cardiovascular Disease 08/06/22
--- NOTE | 2024-11-24 23:25 | PC.NURSE ---
Pt at nursing station did you all just forget about my blood, or did you all give up. This rn asked pt to return to her room and we would be right back with her.
[2024-11-24 23:38] LABS: Hematocrit 41.0 % (37.0-47.0); Hemoglobin 12.9 g/dL (12.0-15.0); Immature Granulocyte Percent A 0.3 % (0-0.5); Lymphocytes Absolute Auto 2.65 K/mm3 (0.9-3.2); Mean Corpuscular HGB Conc 31.5 g/dl (32-36); Mean Corpuscular Hemoglobin 26.5 pg (26-34); Mean Corpuscular Volume 84.4 fl (80-100); Nucleated Red Blood Cells Absolute Auto 0.000 K/mm3 (0.0-0.012); Nucleated Red Blood Cells Perc 0.0 % (0.0-0.2); Platelet Count Result 295 k/mm3 (150-375); Red Blood Count 4.86 M/mm3 (4.2-5.4); White Blood Count 6.5 K/mm3 (4.5-10.0)
[2024-11-24 23:49] LABS: Add Urine Microscopic? YES; Appearance Urine Turbid (Clear); Glucose Urine UA Negative (Negative); Leukocyte Esterase Ur Negative LEU/UL (Negative); Nitrate Urine Negative (Negative); Non Pathogenic Casts 0-2; Specific Grav Ur 1.016 (1.001-1.035)
[2024-11-24 23:51] LABS: Alanine Aminotransferase 24 U/L (6-35); Albumin Level 4.8 g/dL (3.5-5.1); Alkaline Phosphatase 129 U/L (38-126); Anion Gap 11 mmol/L (4-12); Aspartate Amino Transferase 38 U/L (14-36); Bilirubin,Total 0.5 mg/dL (0.2-1.3); Blood Urea Nitrogen 15 mg/dL (7-17); Calcium 10.2 mg/dL (8.4-10.2); Carbon Dioxide 24 mmol/L (22-30); Chloride 105 mmol/L (98-107); Estimated CRCL calculation 46 ml/min; Estimated Glomerular Filt Rate 46; Glucose 93 mg/dL (65-110); Lipase 108 U/L (23-300); Potassium 3.7 mmol/L (3.4-5.0); Sodium 140 mmol/L (137-145); Total Protein 9.0 g/dL (6.3-8.2)
[2024-11-25 00:31] VITALS: BP 137/62; PULSE 76; RESP 16; TEMP 37.1; O2SAT 98
== END 2024-11-25 00:32 | disposition home or self-care (01) ==
PROVIDERS: Emergency Provider Physician Assistant; PCP Internal Medicine Infectious Disease
DX: N20.0 Calculus of kidney (principal); I12.9 Hypertensive chronic kidney disease with stage 1 through stage 4 chronic kidney disease, or unspecified chronic kidney disease; N18.9 Chronic kidney disease, unspecified; E78.5 Hyperlipidemia, unspecified; D86.9 Sarcoidosis, unspecified; Z87.891 Personal history of nicotine dependence; R00.1 Bradycardia, unspecified; R94.31 Abnormal electrocardiogram [ECG] [EKG]; R93.41 Abnormal radiologic findings on diagnostic imaging of renal pelvis, ureter, or bladder; Z79.899 Other long term (current) drug therapy; Z79.82 Long term (current) use of aspirin
CPT/HCPCS: 36415; 74176; 80053; 81001; 83690; 85025; 93005; 99284; A9270

== ENCOUNTER 2025-01-01 00:37 | Emergency (ER) | payer BC, OTHER, SELFPAY ==
[2025-01-01] VITALS (8 sets, daily range): BP systolic 118–141; BP diastolic 80–106; PULSE 70–82; RESP 17–20; TEMP 36.7–36.9; O2SAT 96–100
--- NOTE | ~2025-01-01 | XR_ITS ---
EXAMINATION: XR finger 4th RT min 2V, 01/01/2025 2:15 CDT HISTORY: pain COMPARISON: No comparisons available. Findings: No acute fracture or malalignment. No significant degenerative changes. Soft tissues unremarkable. Impression: No acute fracture or malalignment. Reviewed, dictated and finalized at location P. Impression: No acute fracture or malalignment.
--- OUTSIDE RECORDS SUMMARY | 2025-01-01 00:42 | XMS_ITS | Clinical Summary ---
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 This disclosure is being madepursuant to the Care Everywhere program and may not contain all information available regarding this patient. Last updated 17.[facility] Allergies Active Allergy Reactions Criticality Noted Date Comments Penicillins Swelling 01/02/2019 Penicillins Unknown 04/29/2018 Medications * Be aware that medications may not be up to date on this document. Alwaysverify current medications with the patient. LOSARTAN POTASSIUM PO Active PRAVASTATIN SODIUM PO Active albuterol HFA (Proventil; Ventolin; Proair) 108 (90 Base) MCG/ACT inhaler INHALE 2 PUFFS BY MOUTH EVERY 4 HOURS NEEDED FOR WHEEZING OR SHORTNESS OF BREATH 3 Active aspirin EC (Ecotrin) 81 MG tablet Take 1 (one) tablet by mouth once daily Active calcitriol (Rocaltrol) 0.25 MCG capsule Take 1 (one) capsule by mouth once daily 4 Active Cholecalciferol 50 MCG (2000 UT) Take 1 (one) tablet by mouth once daily 4 Active clotrimazole (Lotrimin AF) 1 % cream APPLY TOPICALLY TO THE AFFECTED AND SURROUNDING AREAS TWICE DAILY IN THE MORNING AND IN THE EVENING Active ergocalciferol (Drisdol) 1.25 MG (99860 UT) capsule 1 (one) capsule 4 Active furosemide (Lasix) 20 MG tablet Take 1 (one) tablet by mouth once daily 4 Active meclizine (Antivert) 25 MG tablet Take 1 (one) tablet by mouth 2 times daily as needed Active potassium chloride ER (K-TAB) 20 MEQ tablet Take 1 (one) tablet by mouth once daily 4 Active amLODIPine (Norvasc) 10 MG tablet Take 1 (one) tablet by mouth once daily 4 Active Active Problems Problem Noted Date Diagnosed Date Adhesive capsulitis of left shoulder 01/02/2019 Immunizations Immunization Administration Dates Next Due INFLUENZA VACCINE, TRIV. (AF LURIA, FLUZONE TRIVALENT; 6MO+) (IIV3) 03/09/2024 COVID - 19, HISTORIC VACCINE 07/15/2020,06/17/19 21 FLU VACCINE QUAD IIV4 SPLIT 0.25 ML IM 03/11/2023,01/01/2022,12/28/2020,2016,04/03/2016 INFLUENZA VACCINE, QUADR. (F LUZONE; FLULAVAL; FLUARIX; AFLURIA QUADRIVALENT; 6MO+), 0.5 ML (IIV4) 03/27/2018 PNEUMOCOCCAL PCV20 CONJ VAC IM 03/09/2024 PNEUMOCOCCAL PPSV23 09/02/2014 Social History Tobacco Use Types Packs/Day Years Used Date Smoking Tobacco: Former Cigarettes 1 30 Smokeless Tobacco: Never Tobacco Cessation:Counseling Given: Not Answered Alcohol Use Standard Drinks/Week Comments No 0 (1 standard drink = 0.6 oz pur e alcohol) Comments Unknown Sex and Gender Information Value Date Recorded Sex Assigned at Not on file Legal Sex Female 10:15 AM LITHODUPLICATOR OPERATOR Gender Identity Not on file Sexual Orientation Not on file Last Filed Vital Signs Vital Sign Reading Time Taken Comments Blood Pressure 109/74 09/02/2024 10:06 AM CDT Pulse 84 09/02/2024 10:06 AM CDT Temperature 36.6 C (97.9 F) 01/02/2019 2:51 PM CDT Respiratory Rate 17 02/12/2024 8:58 AM LITHODUPLICATOR OPERATOR Oxygen Saturation 94% 09/02/2024 10:06 AM CDT Inhaled Oxygen Concentration - - Weight 92.1 kg (203 lb) 09/02/2024 10:06 AM CDT Height 165.1 cm (5' 5) 09/02/2024 10:06 AM CDT Body Mass Index 33.78 09/02/2024 10:06 AM CDT Plan of Treatment Upcoming Encounters Date Type Department Care Team (Late st Contact Info) Description 03/10/2025 8:30 AM LITHODUPLICATOR OPERATOR Office Visit [facility] - Pulmonology [address] [place] [address], [place] [id number] Shiloh Petty DO [address] [place] [address] DIV OF [facility] [place] [address] Health Maintenance Due Date Last Done Comments BONE DENSITY TESTING 1959 COLOGUARD (AGES 45-75) - COLON CA SCREENING 1959 COLON MONITORING 1959 COLONOSCOPY - COLON CA SCREENING 1959 CT COLONOGRAPHY - COLON CA SCREENING 1959 Colorectal Cancer Screening 1959 FIT - COLON CA SCREENING 1959 FLEX SIG - COLON CA SCREENING 1959 MAMMOGRAM 1959 HIV SCREENING 07/30/1974 HEPATITIS C SCREENING 07/26/1977 DTAP/TDAP/TD VACCINES (1 - Tdap) 07/30/1978 PAP with HPV 07/30/1989 ZOSTER VACCINE (1 of 2) 07/30/2009 SCREENING FOR DIABETES 02/12/2024 04/29/2018 DEPRESSION SCREENING 03/25/2024 COVID-19 VACCINE (3 - 2024- season) 2024 07/15/2020, 06/17/2020 INFLUENZA VACCINE (#1) 2024 , 03/11/2023, 01/01/2022, Additional history exists Respiratory Syncytial Virus (RSV) Vaccine Pt: or over 60 yrs (1 - 1-dose 75+ series) 07/30/2034 PNEUMOCOCCAL VACCINE 50+ Completed 03/09/2024, 08/23 HEPATITIS B VACCINE Aged Out No longe r eligible based on patient's age to complete this topic HIB VACCINE Aged Out No longer eligi ble based on patient's age to complete this topic HPV VACCINE Aged Out No longer eligi ble based on patient's age to complete this topic MENINGOCOCCAL (Group B) VACCINE SHARED DECISION-MAKING Aged Out No longer eligible based on patient's age to complete this topic MENINGOCOCCAL GROUPS A/C/Y/W VACCINE Aged Out No longer eligible based on patient's age to complete this topic Procedures Procedure Name Priority Date/Time Associated Diagnosis Comments COMPREHENSIVE METABOLIC PANEL STAT 04/29/2018 12:45 PM LITHODUPLICATOR OPERATOR from Last 3 Months or Most Recently Relevant to Health Maintenance Results * (ABNORMAL) COMPREHENSIVE METABOLIC PANEL (04/29/2018 12:45 PM LITHODUPLICATOR OPERATOR) BUN 16 7 - 26 mg/dL 04/29/2018 1:06 PM [facility] Creatinine 1.1 0.6 - 1.2 mg/dL 04/29/2018 1:06 PM [facility] Sodium 143 136 - 145 mmol/L 04/29/2018 1:06 PM [facility] Potassium 3.3(L) 3.5 - 4.5 mmol/L 04/29/2018 1:06 PM [facility] Chloride 109(H) 98 - 107 mmol/L 04/29/2018 1:06 PM [facility] CO2 22 22 - 29 mmol/L 04/29/2018 1:06 PM [facility] Glucose 90 70 - 115 mg/dL 04/29/2018 1:06 PM [facility] Calcium 8.8 8.4 - 10.2 mg/dL 04/29/2018 1:06 PM [facility] Protein Total 6.5 6.0 - 8.3 g/dL 04/29/2018 1:06 PM [facility] Albumin 3.2(L) 3.4 - 5.0 g/dL 04/29/2018 1:06 PM [facility] Bilirubin Total 0.7 0.2 - 1.2 mg/dL 04/29/2018 1:06 PM [facility] Alkaline Phosphatase 61 40 - 150 Units/L 04/29/2018 1:06 PM [facility] ALT 17 0 - 55 Units/L 04/29/2018 1:06 PM [facility] AST 19 5 - 34 Units/L 04/29/2018 1:06 PM [facility] Anion Gap 15 8 - 18 04/29/2018 1:06 PM [facility] BUN/Creatinine Ratio 15 7 - 23 04/29/2018 1:06 PM [facility] Osmolality Calculated 297 270 - 300 mOsm/kg 04/29/2018 1:06 PM [facility] Albumin/Globulin Ratio 1.0(L) 1.1 - 2.3 04/29/2018 1:06 PM [facility] eGFR >60 >60 mL/min/1.7 3 m2 04/29/2018 1:06 PM [facility] Blood BLOOD SPECIMEN / Unknown Venipuncture / Unknown 04/29/2018 12:45 PM LITHODUPLICATOR OPERATOR 04/29/2018 12:49 PM [facility] Mara Akhtar PA-C LAB - CHEMISTRY SONNY CEDILLO Final Result [address] [phone] from Last 3 Months or Most Recently Relevant to Health Maintenance Insurance [facility] Care Teams 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
--- OUTSIDE RECORDS SUMMARY | 2025-01-01 00:42 | XMS_ITS | Clinical Summary ---
Author Organization [facility] [address] Address [address] [place] [address] Care Team Providers Care Steel Tier Name Role Phone Tone Conn MD Primary Care Provider Nicole Vivar MD Unavailable [phone] Allergies Active Allergy Reactions Criticality Noted Date [...] on file Legal Sex Female 11:55 PM GUARD MANAGER Gender Identity Not on file Sexual Orientation Not on file Obstetrics History Last Filed Vital Signs Vital Sign Reading Time Taken Comments Blood Pressure 132/85 04/03/2023 9:34 AM GUARD MANAGER Pulse 65 04/03/2023 9:34 AM GUARD MANAGER Temperature 36.2 C (97.2 F) 04/03/2023 9:34 AM GUARD MANAGER Respiratory Rate 18 04/03/2023 9:34 AM GUARD MANAGER Oxygen Saturation 96% 04/03/2023 9:34 AM GUARD MANAGER Inhaled Oxygen Concentration - - Weight 91.2 kg (201 lb) 04/03/2023 9:34 AM GUARD MANAGER Height 165.1 cm (5' 5) 04/03/2023 9:34 AM GUARD MANAGER Body Mass Index 33.45 04/03/2023 9:34 AM GUARD MANAGER Plan of Treatment Health Maintenance Due Date [...] 3, 01/01/2022, 12/28/2020, Additional history exists Insurance [facility] Advance Directives For more information, please contact: [phone] * Full Code (Latest Code Status on File) Date Activated Date Inactivated Comments 10/08/2022 2:15 PM 10/09/2022 5:24 PM Care Teams Steel Tier Relationship Specialty Start Date End Date Tone Conn MD [address] [address] PCP - General Internal Medicine 01/04/21 [place] [id number] [facility] [address], [place] [address] Consulting Physician Cardiovascular Disease 08/06/22
--- NOTE | 2025-01-01 03:33 | ED_ITS ---
HPI - Extremity Injury (Upper) General Chief Complaint: Extremity Injury, Upper <Marine Santana APRN - Last Filed: 01/01/25 03:35> Stated Complaint: Right 4th digit finger tip swollen, possible FB <Marine Santana APRN - Last Filed: 01/01/25 03:35> Time Seen by Provider: 01/01/25 03:33 <Marine Santana APRN - Last Filed: 01/01/25 03:35> Focused HPI: Patient is a 64-year-old female who presents to the ER with pain to her right ring finger. She reports she 1st noticed the pain on Saturday, 3 days ago. Patient reports the digit is tight and sore. She endorses decreased range of motion at her DIP joint. Patient reports she has no history of diabetes. She endorses a penicillin allergy and hypertension. Patient denies any recent fevers, purulence drainage from the site, or recent injury to the site. GENERAL: Well-appearing, well-nourished, and in no acute distress. HEAD: Normocephalic, atraumatic. CHEST: Clear to auscultation. ?No respiratory distress. HEART: Regular rate and rhythm.? NEURO: ?Alert and oriented x3. Patient screened in triage and initial orders placed.? ?Additional care and disposition to be based upon?diagnostic testing and treatment. <Marine Santana APRN - Last Filed: 01/01/25 03:35> History of Present Illness HPI narrative: Patient is a 64-year-old female who presents to the ER with pain to her right ring finger. She reports she 1st noticed the pain on Saturday, 3 days ago. Patient reports the digit is tight and sore. She endorses decreased range of motion at her DIP joint. Patient reports she has no history of diabetes. She endorses a penicillin allergy and hypertension. Patient denies any recent fevers, purulence drainage from the site, or recent injury to the site. <José Cuevas DO - Last Filed: 01/01/25 05:37> Related Data Home Medications: Home Medications ?Medication ?Instructions ?Recorded ?Confirmed ?Last Taken ?Type losartan 50 mg tablet 50 mg PO DAILY 01/04/2105/2306/09/22 History pravastatin 40 mg tablet 40 mg PO DAILY 01/04/2105/2306/09/22 History hydrochlorothiazide 12.5 mg tablet 12.5 mg PO DAILY 06/09/22 06/09/22 History meclizine 25 mg tablet 25 mg PO BID PRN Dizziness 0 06/09/22 06/09/22 Unknown History meloxicam 15 mg tablet 15 mg PO DAILY PRN Pain 05/2306/09/22 06/09/22 History <Marine Santana, TRANSPORTATION TECHNICIAN - Last Filed: 01/01/25 03:35> Allergies/Adverse Reactions: Allergies Allergy/AdvReac Type Severity Reaction Status Date / Time Penicillins Allergy Anaphylaxis Verified 01/01/25 00:39 <Marine Santana TRANSPORTATION TECHNICIAN - Last Filed: 01/01/25 03:35> Review of Systems Review of Systems: A 10 system review of systems was completed on the patient and is negative except for what is stated in the HPI. Nursing and ancillary documentation was reviewed. <José Cuevas DO - Last Filed: 01/01/25 05:37> [facility] Past Medical History Medical History: Medical History Bradycardia Evaluated by a corporate travel expert in [place]. Dyslipidemia Hypertension <Marine Santana, TRANSPORTATION TECHNICIAN - Last Filed: 01/01/25 03:35> Surgical History Surgical History: Surgical History History of tubal ligation History of partial thyroidectomy Removal of a benign mass. <Marine Santana APRN - Last Filed: 01/01/25 03:35> Family History Family History: Family History Mother Cerebrovascular accident Sibling Cerebrovascular accident Sibling Heart attack Father Alzheimer's dementia <Marine Santana APRN - Last Filed: 01/01/25 03:35> Social History Social History: Social History Social History: Surrogate medical decision maker: Jabier Charles (spouse). Code status: Full code. Smoking packs per day: 0.5 Smoking cigarettes per day: 10.0 Years smoked: 40 Smoking pack-years: 20.00 Smoking status: Former smoker Tobacco type: cigarettes Alcohol intake: never Drinks per week: 1 Substance use: never Lack of Transportation: No Lack of Food: Never True Current Housing: I Have Housing Concerned About Future Housing: No Difficulty Paying Gas/Electric Bills: No Difficulty Paying for Meds: No Currently Unemployed: No Education: Decline to Answer Difficulty w/ Childcare or Family Care: No Additional living arrangements comments: Lives with spouse in [place]. 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 Spiritual care concerns: No <Marine Santana, TRANSPORTATION TECHNICIAN - Last Filed: 01/01/25 03:35> Exam Narrative: CONST: No acute distress. Well nourished. HENMT: Head is normocephalic and atraumatic. Moist mucous membranes. No posterior oropharynx erythema. EYES: No scleral icterus. No conjunctival injection or pallor. PERRL. NECK: No meningeal signs. RESP: Able to speak in full sentences. Normal respiratory effort. CTAB. CARDIO: Regular rate. Regular rhythm. 2+ DP and radial pulses bilaterally. GI: Nondistended. No tenderness to palpation. Soft. : No CVA tenderness to palpation. SKIN: No rashes or lesions noted on exposed skin. The right 4th digit distally has some mild tenderness to palpation along the lateral nail fold, no palpable fluctuance, no crepitus, there is also mild tenderness to palpation along the distal phalanx along the palmar aspect no palpable fluctuance, no crepitus. No DIP joint space involvement. NEURO: Oriented x3. Moves all extremities. EXTREM/MSK/BACK: No pedal edema. PSYCH: Normal affect. <José Cuevas, DO - Last Filed: 01/01/25 05:37> Course Vital Signs Vital signs: Vital Signs Temperature 98.3 F 01/01/25 00:40 Pulse Rate 70 01/01/25 00:40 Respiratory Rate 17 01/01/25 00:40 Blood Pressure 138/83 01/01/25 00:40 Pulse Oximetry 96 01/01/25 00:40 Oxygen Delivery Room Air 01/01/25 00:40 Temperature 98.5 F 01/01/25 02:35 Pulse Rate 72 01/01/25 02:35 Respiratory Rate 18 01/01/25 02:35 Blood Pressure 130/93 H 01/01/25 03:01 Pulse Oximetry 98 01/01/25 03:01 Oxygen Delivery Room Air 01/01/25 02:35 <Marine Santana, TRANSPORTATION TECHNICIAN - Last Filed: 01/01/25 03:35> Vital Signs Temperature 98.3 F 01/01/25 00:40 Pulse Rate 70 01/01/25 00:40 Respiratory Rate 17 01/01/25 00:40 Blood Pressure 138/83 01/01/25 00:40 Pulse Oximetry 96 01/01/25 00:40 Oxygen Delivery Room Air 01/01/25 00:40 Temperature 98.5 F 01/01/25 02:35 Pulse Rate 72 01/01/25 02:35 Respiratory Rate 18 01/01/25 02:35 Blood Pressure 130/93 H 01/01/25 03:01 Pulse Oximetry 98 01/01/25 03:01 Oxygen Delivery Room Air 01/01/25 02:35 <José Cuevas, DO - Last Filed: 01/01/25 05:37> MDM - Extremity Injury (Upper) MDM Narrative Medical decision making narrative: Patient presents with the above complaint. Initial vitals are remarkable for no significant abnormalities. Physical examination as noted above. Differential diagnosis includes was not limited to: Paronychia, Felon Plan discussed: Hydrocodone, antibiotics, x-ray. I do not appreciate any acute fracture dislocation of the right 4th finger on x- ray. Shared decision making performed regarding attempting an incision and drainage versus antibiotics and return precautions and close outpatient follow-up. Patient agrees the plan for antibiotics and pain medications and close outpatient follow-up and will return as needed. Patient was reassessed at the bedside. No changes in physical exam. Patient is in no acute distress. The patient has remained stable throughout the entire ED visit. Counseled patient regarding diagnostic results and potential diagnosis. Anticipatory guidance provided. Patient instructed to follow up with PCP in 24 to 48 hours. Patient counseled on: false reassurance from an emergency department evaluation; no current evidence of a medical emergency; return immediately for any new, recurrent, worsening, concerning, or refractory symptoms. Patient prescribed bactrim and norco. Prescription sent to preferred pharmacy. Medications discussed with patient. Additional verbal and printed discharge instructions were given and discussed with the patient. Patient verbally acknowledges understanding of condition and discharge instructions. All questions were answered to the patient's satisfaction. Patient is in agreement with the plan of care. The patient is stable for discharge and was discharged without incident. <José Cuevas, DO - Last Filed: 01/01/25 05:37> Discharge Plan Discharge Clinical Impression: ParoBryce laird <Marine Santana APRN - Last Filed: 01/01/25 03:35> Patient Disposition: Home <Marine Santana APRN - Last Filed: 01/01/25 03:35> Condition: Stable <Marine Santana APRN - Last Filed: 01/01/25 03:35> Instructions: Antibiotic Form, Parotammiea (ED) <Marine Santana APRN - Last Filed: 01/01/25 03:35> Additional Instructions: Take the antibiotics as prescribed to completion, pain medications as needed for discomfort, follow-up with your primary care physician in the next 24-48 hours for reassessment, if you develop any marked swelling, discharge, fever, sudden increase in pain return to the emergency department for roxanna ssessment patient may benefit from incision and drainage however I do not appreciate any significant pocket fluid that would be amenable to drainage at this time. Warm soaks daily in soapy water. <Marine Santana APRN - Last Filed: 01/01/25 03:35> Patient Language: Kenyan <Marine Santana APRN - Last Filed: 01/01/25 03:35> Prescriptions: New sulfamethoxazole-trimethoprim [Bactrim DS] 800-160 mg tablet 1 tablet PO Q12H 7 Days Qty: 14 0RF hydrocodone-acetaminophen 5-325 mg tablet 1 tablet PO Q6H MDD 4 tabs PRN (Reason: pain) 3 Days Qty: 12 0RF No Action cyclobenzaprine 5 mg tablet 5 mg PO TID PRN (Reason: muscle spasm) Qty: 14 0RF acetaminophen 500 mg capsule 500 mg PO Q6H PRN (Reason: pain) Qty: 14 0RF lidocaine 5 % adhesive patch,medicated 1 patch topical DAILY Qty: 15 0RF Rx Instructions: leave on most painful area for up to 12 hrs. do not use more than 1 patch in a 24-hour period. losartan 50 mg tablet 50 mg PO DAILY pravastatin 40 mg tablet 40 mg PO DAILY hydrochlorothiazide 12.5 mg tablet 12.5 mg PO DAILY meloxicam 15 mg tablet 15 mg PO DAILY PRN (Reason: Pain) meclizine 25 mg tablet 25 mg PO BID PRN (Reason: Dizziness) atorvastatin 40 mg Tablet 40 mg PO DAILY Qty: 30 0RF aspirin 81 mg Tablet,Delayed Release (Dr/Ec) 81 mg PO QAM Qty: 30 0RF levofloxacin 500 mg tablet 500 mg PO DAILY Qty: 10 0RF dicyclomine 10 mg capsule 10 mg PO TID Qty: 6 0RF <Marine Santana APRN - Last Filed: 01/01/25 03:35> Follow-up/Referrals: Fabien,Jj Wayne [Primary Care Provider] - 2 Days <Marine Santana APRN - Last Filed: 01/01/25 03:35> Time of Disposition: 05:34 <Marine Santana APRN - Last Filed: 01/01/25 03:35> 05:34 <José Cuevas DO - Last Filed: 01/01/25 05:37>
[2025-01-01] MEDS: HYDROcodone/acetaminophen (*CRX) 5-325 MG TABLET 1 TAB PO (03:42)
[2025-01-01] MEDS: SULFAMETHOXAZOLE/TRIMETHOPRIM 800/160 MG DS TABLET 1 TAB PO (05:42)
== END 2025-01-01 05:48 | disposition home or self-care (01) ==
LOC: ANHED 05:37
PROVIDERS: Emergency Provider Student in an Organized Health Care Education/Training Program; PCP Internal Medicine Infectious Disease
DX: L03.011 Cellulitis of right finger (principal)
CPT/HCPCS: 73140; 99283; A9270